=== PATIENT | female | born 1975 | race Caucasian/White ===

== ENCOUNTER 2016-08-30 16:24 | Emergency (ER) | payer OTHER ==
[2016-08-30 17:35] VITALS: BP 142/92
--- NOTE | 2016-08-30 18:03 | UC ---
Back Pain HPI - HPI Summary HPI Summary: The patient comes in today for: 1. Lower right back pain: Onset: One week. Palliative/provocative: Standing with no weight on the the right foot makes it better. Sitting to standing makes it worse. Quality: [place]: Right lower back. Severity: 3/10, with sitting to standing--8/10 Time: Constant, with episodic worsening. Associated symptoms: Spasms: present from time to time. Homes treatment: Aleve and Advil which does not help as much as she would like. Fevers: None. Unexpected weight loss: None. Previous problems: Occasionally in the past she has had it, but not to this degree. Her usual resting has been helping. Bowel/bladder incontinence: None. * - History of Current Complaint Chief Complaint: UCBackPain Stated Complaint: BACK PAIN Time Seen by Provider: 08/30/16 17:49 Hx Obtained From: Patient Hx Last Menstrual Period: 08/28/16 ?: No - Allergies/Home Medications Allergies/Adverse Reactions: Allergies Allergy/AdvReac Type Severity Reaction Status Date / Time No Known Allergies Allergy Verified 08/30/16 17:35 PMH/Surg Hx/FS Hx/Imm Hx Previously Healthy: No Endocrine History Of: Denies: Diabetes, Thyroid Disease, Hyperthyroidism, Hypothyroidism, Dyslipidemia Cardiovascular History Of: Denies: Cardiac Disorders, Hypertension, Pacemaker/ICD, Myocardial Infarction , Congestive Heart Failure, Atrial Fibrillation, Deep Vein Thrombosis, Bleeding Disorders Respiratory History Of: Denies: COPD, Asthma, Bronchitis, Pneumonia, Pulmonary Embolism GI/ History Of: Denies: Gastroesophageal Reflux, Ulcer, Gastrointestinal Bleed, Gall Bladder Disease, Kidney Stones, Diverticulitis, Renal Disease, Urosepsis Neurological History Of: Reports: Migraine - WITH MENSTAL CYCLE Denies: TIA, CVA, Dementia, Seizures Psychological History Of: Denies: Anxiety, Depression, Bipolar Disorder, Schizophrenia, Post Traumatic Stress Disorder Cancer History Of: Denies: Lung Cancer, Colorectal Cancer, Breast Cancer, Prostate Cancer, Cervical Cancer Other History Of: Negative For: HIV, Hepatitis B, Hepatitis C, Anticoagulant Therapy - Surgical History Surgical History: Yes Surgery Procedure, Year, and Place: 2005 & 2006 BENIGN BREAST BIOPSIES [place]. 1995 [place], ENDOMETRIAL TISSUE [place]. YOUNG CHILD T&A. YOUNG CHILD EMMANUEL SARA REMOVED LEFT LOWER LEG. kaela can - Family History Known Family History: Positive: Cardiac Disease, Hypertension - Social History Occupation: Unemployed Alcohol Use: Weekly Alcohol Amount: 2 glasses of wine per week Substance Use Type: None Smoking Status (MU): Never Smoked Tobacco Have You Smoked in the Last Year: No - Immunization History Most Recent Influenza Vaccination: FALL 2012 Most Recent Tetanus Shot: 02/2009 Most Recent Pneumonia Vaccination: NEVER Review of Systems Constitutional: Negative Skin: Negative Eyes: Negative ENT: Negative Respiratory: Negative Cardiovascular: Negative Gastrointestinal: Negative Genitourinary: Negative Musculoskeletal: Arthralgia Neurological: Weakness All Other Systems Reviewed And Are Negative: Yes Physical Exam Triage Information Reviewed: Yes Appearance: Well-Appearing, Well-Nourished, Pain Distress - She has guarding and psychomotor slowing. She is able to get on Vital Signs: Initial Vital Signs Temp 98.3 F 08/30/16 17:32 Pulse 57 08/30/16 17:32 Resp 20 08/30/16 17:32 BP 142/92 08/30/16 17:32 Pulse Ox 100 08/30/16 17:32 Vital Signs Reviewed: Yes Eyes: Positive: Conjunctiva Clear. Negative: Discharge ENT: Positive: Hearing grossly normal. Negative: Pharyngeal erythema, Nasal congestion, Nasal drainage, TM bulging, TM dull, TM red, Tonsillar swelling, Tonsillar exudate Dental: Negative: Gross Decay/Caries @, Dental Fracture @ Neck: Positive: Supple, Nontender, No Lymphadenopathy. Negative: Nuchal Rigidity Respiratory: Positive: Lungs clear, No respiratory distress, No accessory muscle use. Negative: Crackles, Wheezing Cardiovascular: Positive: RRR, No Murmur Abdomen Description: Positive: Nontender, No Organomegaly, Soft. Negative: Distended, Guarding Musculoskeletal: Positive: No Edema, Other: - Back: There is tenderness to palpation of the right paraspinous musculature. There is no Right CVA tenderness. There is increased pain with extension of the legs. There are 2+/ 2 x 2 patellar DTR. She has guarding and psychomotor slowing with getting examination table. Neurological: Positive: Alert, Muscle Tone Normal Psychological: Positive: Age Appropriate Behavior Skin: Negative: rashes, breakdown Back Pain Course/Dx - Course Course Of Treatment: Patient was given a ketorolac injection (60 mg) and told of her treatment options. She is agreeable to go with NSAIDS and muscle relaxant. She has a follow-up appointment with her primary care provider later this week or early next week. - Differential Dx/Diagnosis Provider Diagnoses: Lower back strain, right. Discharge - Discharge Plan Condition: Stable Disposition: HOME Patient Education Materials: Low Back Strain (ED) Referrals: Charles Rolon MD [Primary Care Provider] - 1 Week
[2016-08-30] MEDS ORDERED: Ketorolac INJ* 60 MG/2 ML VIAL IM ONE (18:04)
== END 2016-08-30 18:54 | disposition home or self-care (01) ==
LOC: UCEAST 16:24
DX: S39.012A Strain of muscle, fascia and tendon of lower back, initial encounter (principal); X58.XXXA Exposure to other specified factors, initial encounter; Y93.9 Activity, unspecified; Y92.9 Unspecified place or not applicable
CPT/HCPCS: 96372; 99211; G0463; J1885

== ENCOUNTER 2018-05-16 05:52 | Observation (INO) | payer OTHER ==
[~2018-05-16 05:52] MED LIST: Buffered Lidocaine 0.9% SYRIN* 5 ML/SYR SYRINGE INTRADERM ONE
[2018-05-16] MEDS ORDERED: ceFAZolin 2 GM in NS PREMIX(*) 2 GM/100 ML BAG IVPB ONE (06:07)
--- OUTSIDE RECORDS SUMMARY | 2018-05-16 06:08 | XMS REPORT ---
:1975 External Reference #:[id number] Author Organization [facility] Address [address] [place] [address] Phone [phone] Care Team Providers Name Role Phone Charles Rolon MD Care Team Information Convention Services Manager Unavailable Charles Rolon MD Primary Care Physician Unavailable Payers Type Date Identification Numbers Payment Provider Subscriber Health Maintenance Policy Number: Penn Laird [employer] Orlando Brandt Organization (O) [id number] PayID: [id number] [id number] [place] [address] Problems Date Description Provider Status Onset: 07/15/2011 Neck pain MILLY Scott Active Onset: 07/15/2011 Nausea Cari Schrader M.D. Active Onset: 07/15/2011 Migraine without aura, not refractory Cari Schrader M.D. Active Onset: 02/10/2013 Acute pharyngitis Charles Rolon M.D. Active Onset: 02/26/2012 Vitamin D deficiency Cari Schrader M.D. Active Onset: 02/26/2012 Counseling Cari Schrader M.D. Active Onset: 02/26/2012 Adult health examination Cari Schrader M.D. 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 Cigarette Use Nonsmoker Recreational Drug Use Denies Drug Use Smoking Patient has never smoked Daily Caffeine Consumes on average 2 cups of coffee per day Exercise Type/Frequency Current Exercises regularly Allergies, Adverse Reactions, Alerts Date Description Reaction Status Severity Comments 04/17/2011 NKDA active Medications Medication Date Status Form Strength Qnty SIG Indications Ordering Provider Cephalexin 04/24 Active Tablets 250mg 28tabs 1 by mouth L03.115 Reinier Arellano four times beth Walker MD Diflucan 04/24 Active Tablets 150mg 2tabs 1 by mouth L03.115 Reinier Arellano times 1 nicol Walker, december repeat in 5-7d Lorazepam 02/05 Active Tablets 1mg 30tabs 1 by mouth Charles Alexandra once a day vicky Rolon M.D. directed Baclofen 10/26 Active Tablets 10mg 10tabs one by S3Brendan.Inna Edwards mouth 2-3 Juan, times REFRIGERATION SUPERVISOR daily as needed Verapamil HCL Active Caps ER 180mg 1 po qhs Unknown ER /0000 24HR Gabapentin Active Capsules 100mg 1 by mouth Unknown /0000 tWO times a day Physical 10/26 Hx please Rajan.Inna Edwards Therapy diagnose Juan, - and treat REFRIGERATION SUPERVISOR 04/17 for right lower back and hip pain with radiation down right leg Prednisone 10/26 Hx Tablets 20mg 10tabs take 2 by Jaqueline9.Inna Edwards mouth as Juan, - one dose REFRIGERATION SUPERVISOR 04/17 daily until gone Guaifenesin-Co 09/18 Hx Syrup 100-10mg/ 120ml 5-10 ml by Cassie eid 5ML mouth [facility], - prn as Afnp-C 09/28 needed cough, mr x 1 , in 3-4 hrs Baclofen 07/17 Hx Tablets 20mg 45tabs 1 by mouth Charles Aleaxndra twice a Ольга, - day as MAdelitaDAdelita 09/14 needed for spasm Physical 07/17 Hx treatment M54.5 Charles Alexandra Therapy and Ольга, - evaluation M.D. 09/14 low back /2018 pain Naproxen 07/17 Hx Tablets 500mg 60tabs take 1 Charles Alexandra tablet Ольга, - twice M.D. 09/14 daily needed with food Fluconazole 05/26 Hx Tablets 150mg 1tabs 1 by mouth N76.0 Cassie x 1 Piperviridiana, - Afnp-C 07/17 Lorazepam 03/01 Hx Tablets 1mg 8tabs 1 by mouth Charles A once a day Ольга, - as M.D. 03/22 directed Physical 09/20 Hx treatment M54.5 Charles A. Therapy and Ольга, - evaluation M.D. 10/11 low back pain Lorazepam 04/29 Hx Tablets 1mg 8tabs 1 po once Charles A. a day prn Ольга, - M.D. 02/22 Metoprolol 02/18 Hx Tablets 25mg 30tabs 1 by mouth 401.1 Phan Rdz Succinate ER 24HR every day M.D. - 02/22 Metoprolol 12/05 Hx Tablets 100mg 30tabs 1/2 by 401.1 Phan Rdz Succinate ER 24HR mouth M.D. - every day 02/18 Butalbital/Matias 12/05 Hx Tablets 50-325-40 30tabs 1 by mouth 784.0 Phan Rdz taminophen/Caf /2014 mg every 4 M.D. feine - hours as 02/22 needed Metoprolol 11/28 Hx Tablets 50mg 30tabs 1 po qd 401.1 Phan Rdz Succinate ER 24HR M.D. - 12/05 Azithromycin 11/10 Hx Tablets 250mg 6tabs take 2 Rubens F. tablets by Cj, - mouth on M.D. 11/18 day 1 1 tablet on days 2 through 5 Benzonatate 11/10 Hx Capsules 100mg 20caps 1-2 po tid Rubens F. prn Cj, - M.D. 11/17 Lorazepam 09/08 Hx Tablets 0.5mg 12tabs 1 po bid Charles prn Ольга, - anxiety M.D. 09/18 Ovide 08/01 Hx Lotion 0.5% 4oz apply to dry hair Brown, REFRIGERATION SUPERVISOR - until hair 08/08 is wet and /2013 let dry naturally over 8 - 12 hrs. Wash out. Repeat in a week Penicillin VK 02/10 Hx Tablets 500mg 14tabs 1 po bid 462 Charles AAdelita Pricila Rolon M.D. 02/17 Lorazepam 10/30 Hx Tablets 1mg 15tabs 1 po tid prn Ryan REFRIGERATION SUPERVISOR - 06/04 Aleve 02/25 Hx 1 or 2 . tablets as Macrina, - needed for M.D. 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 Pricila Rolon M.D. 12/09 Amoxicillin/Cl 09/26 Hx Tablets 500-125mg 20tabs 1 po bid 462 Carlitos fermin /2010 Emiliano Berry Potassium - 11/29 Note 08/17 Hx Kasandra was V04.81 given Jamie, - mmr#2 GRAPPLE SKIDDER OPERATOR 09/16 Amoxicillin 08/11 Hx Capsules 500mg 20caps 1 po bid x 034.0 10d Jamie, - GRAPPLE SKIDDER OPERATOR 09/16 Zonegran 01/10 Hx Capsules 100mg 175mg total qd [facility]-DO[facility] OF OSTEOPATHY 01/10 Hx Tablets 10mg 12tabs take one . Dispers prn, Macrina, - repeat in M.D. 06/04 2 /2012 prn Vitamin D3 01/10 Hx Capsules 2000Unit 1 po qd in . the winter Pricila Schrader M.D. 09/20 Proventil HFA 06/18 Hx Aerosol 108mcg/Ac 1units 2 puffs 786.09 Charles A. /2008 t q6h prn Ольга, - analianess M.D. 05/30 of Topamax 04/20 Hx Tablets 50mg 60tabs 1/2 In Am, 1 po Q hs [facility] 01/10 Of Immitrex 04/20 Hx 100mg 1 po at onset of Medicine - rapp, mr q Associates 01/10 2hr x1 Of Mirena 04/20 Hx IUD 20mcg/24H R [facility] 01/10 Of Gabapentin Hx Capsules 300mg 120caps 1 po qd Unknown / - 05/26 Omeprazole Hx Capsules 40mg 1 po q am Unknown /0000 DR - 10/30 Pepcid Hx Tablets 40mg take 1 po Unknown /0000 q pm - 06/29 Pepcid Hx Tablets 40mg combine Unknown / w/prilosec - 10/30 Nexium Hx Capsules 40mg 1 po qd Unknown /0000 DR - 02/10 Dexilant Hx Capsules 60mg samples 1 po qd Unknown /0000 DR - 02/22 Fish Oil Hx Capsules 1000mg 1 po qd Unknown / - 02/22 Multivitamins / Hx Capsules 1 po qd Unknown / - 09/20 Ulesfia Hx Lotion 5% 24oz Apply to Halie dry hair Brown, REFRIGERATION SUPERVISOR - and leave 10/11 on for minutes than wash thoroughly Repeat in a week Lo Loestrin Fe 00 Hx Tablets 1mg-10 1 po qd Unknown /0000 mcg / 10 - mcg 12/05 Norethindrone Hx Tablets 0.35mg 3paks 1 po qd Unknown / - 02/22 Pantoprazole Hx Tablets 40mg 1 po bid Unknown Sodium / DR - 09/01 Calcium/Magnes 00/00 Hx Tablets 1 po qd Unknown ium /0000 - 09/20 Baclofen Hx Tablets 20mg 45tabs 1 by mouth Charles A. /0000 twice a Darlow, - day as M.DAdelita 10/11 needed for spasm Naproxen Hx Tablets 500mg prn Unknown /0000 - 05/26 Medications Administered in Office Medication Date Status Form Strength Qnty SIG Indications Ordering Provider TB Intradermal Administered Injection Breana Pena M.D. TB Intradermal Administered Injection Breana Pena M.D. TB Intradermal Administered Injection Cari Schrader M.D. Immunizations CPT Code Status Date Vaccine Lot # [id number] Given 02/26/2012 Tdap Tetanus, W Pertussis [id number] Given 06/29/2011 DO Not Use Split Influenza Virus Vaccine [id number] Given 08/17/2010 MMR Virus Immunization [id number] Given 08/09/2009 H1N1 Virus Vaccine [id number] 47596 Given 08/09/2009 H1N1 Immunization Intramuscular/Intranasal W Counseling Vital Signs Date Vital Result Comment 04/24/2018 BP Systolic 126 mmHg BP Diastolic 80 mmHg Heart Rate 56 /min Body Temperature 98.6 F Respiratory Rate 16 /min Height 68.5 inches 5'8.50" Weight 174.00 lb BMI (Body Mass Index) 26.1 kg/m2 10/26/2017 BP Systolic 120 mmHg BP Diastolic 82 mmHg Heart Rate 88 /min Body Temperature 98.1 F Height 68.5 inches 5'8.50" Weight 164.00 lb BMI (Body Mass Index) 24.6 kg/m2 09/17/2017 BP Systolic 134 mmHg BP Diastolic 82 mmHg Heart Rate 106 /min Body Temperature 98.8 F Height 68.5 inches 5'8.50" 09/14/2017 BP Systolic 110 mmHg BP Diastolic 70 mmHg Heart Rate 76 /min Body Temperature 98.9 F Respiratory Rate 16 /min Height 68.5 inches 5'8.50" Weight 164.50 lb BMI (Body Mass Index) 24.6 kg/m2 07/17/2017 BP Systolic 140 mmHg BP Diastolic 80 mmHg Heart Rate 76 /min Body Temperature 98.6 F Respiratory Rate 16 /min Height 68.5 inches 5'8.50" Weight 164.00 lb BMI (Body Mass Index) 24.6 kg/m2 05/26/2017 BP Systolic 100 mmHg BP Diastolic 70 mmHg Heart Rate 80 /min Body Temperature 98.1 F Respiratory Rate 18 /min Height 68.5 inches 5'8.50" Weight 165.00 lb BMI (Body Mass Index) 24.7 kg/m2 09/20/2016 BP Systolic 120 mmHg BP Diastolic 68 mmHg Heart Rate 76 /min Body Temperature 97.9 F Respiratory Rate 16 /min Height 68.5 inches 5'8.50" Weight 168.00 lb BMI (Body Mass Index) 25.2 kg/m2 09/01/2016 BP Systolic 108 mmHg BP Diastolic 76 mmHg Heart Rate 68 /min Body Temperature 98.6 F Height 68.5 inches 5'8.50" Weight 168.00 lb BMI (Body Mass Index) 25.2 kg/m2 02/22/2015 BP Systolic 120 mmHg BP Diastolic 78 mmHg Heart Rate 72 /min Body Temperature 98.9 F Respiratory Rate 16 /min Height 68.25 inches 5'8.25" Weight 165.00 lb BMI (Body Mass Index) 24.9 kg/m2 02/18/2014 BP Systolic 112 mmHg BP Diastolic 68 mmHg Heart Rate 62 /min Body Temperature 98.8 F Respiratory Rate 16 /min Height 68.25 inches 5'8.25" Weight 165.00 lb BMI (Body Mass Index) 24.9 kg/m2 01/09/2014 BP Systolic 120 mmHg BP Diastolic 70 mmHg Heart Rate 56 /min Body Temperature 97.4 F Respiratory Rate 16 /min Height 68.25 inches 5'8.25" Weight 165.00 lb BMI (Body Mass Index) 24.9 kg/m2 12/05/2013 BP Systolic 130 mmHg BP Diastolic 90 mmHg Heart Rate 64 /min Body Temperature 98.3 F Height 68.25 inches 5'8.25" Weight 165.00 lb BMI (Body Mass Index) 24.9 kg/m2 11/28/2013 BP Systolic 168 mmHg BP Diastolic 90 mmHg Heart Rate 65 /min Body Temperature 98.7 F Respiratory Rate 14 /min Height 68.25 inches 5'8.25" Weight 164.00 lb BMI (Body Mass Index) 24.8 kg/m2 11/10/2013 BP Systolic 144 mmHg BP Diastolic 98 mmHg Heart Rate 72 /min Body Temperature 98.4 F Height 68.25 inches 5'8.25" Weight 165.50 lb BMI (Body Mass Index) 25.0 kg/m2 10/11/2013 BP Systolic 120 mmHg BP Diastolic 82 mmHg Heart Rate 78 /min Body Temperature 98.5 F Respiratory Rate 15 /min Height 68.25 inches 5'8.25" Weight 164.00 lb BMI (Body Mass Index) 24.8 kg/m2 06/04/2013 BP Systolic 130 mmHg BP Diastolic 84 mmHg Heart Rate 64 /min Body Temperature 97.4 F Respiratory Rate 16 /min Height 68.25 inches 5'8.25" Weight 163.00 lb BMI (Body Mass Index) 24.6 kg/m2 02/10/2013 BP Systolic 100 mmHg BP Diastolic 66 mmHg Heart Rate 56 /min Body Temperature 98.5 F Respiratory Rate 16 /min O2 % BldC Oximetry 98 % Height 68.25 inches 5'8.25" Weight 163.00 lb BMI (Body Mass Index) 24.6 kg/m2 12/16/2012 BP Systolic 110 mmHg BP Diastolic 70 mmHg Heart Rate 68 /min Body Temperature 98.8 F Respiratory Rate 16 /min Height 68.25 inches 5'8.25" Weight 164.00 lb BMI (Body Mass Index) 24.8 kg/m2 10/30/2012 BP Systolic 118 mmHg BP Diastolic 74 mmHg Heart Rate 72 /min Respiratory Rate 18 /min Height 68.25 inches 5'8.25" Weight 164.25 lb BMI (Body Mass Index) 24.8 kg/m2 05/30/2012 BP Systolic 120 mmHg BP Diastolic 86 mmHg Heart Rate 72 /min Body Temperature 98.5 F Height 68.25 inches 5'8.25" Weight 163.50 lb BMI (Body Mass Index) 24.7 kg/m2 02/29/2012 BP Systolic 140 mmHg BP Diastolic 90 mmHg Heart Rate 72 /min Body Temperature 98.1 F Height 68.25 inches 5'8.25" Weight 163.00 lb BMI (Body Mass Index) 24.6 kg/m2 02/26/2012 BP Systolic 140 mmHg BP Diastolic 90 mmHg Heart Rate 72 /min Body Temperature 98.1 F Height 68.25 inches 5'8.25" Weight 163.00 lb BMI (Body Mass Index) 24.6 kg/m2 Right Visual Acuity Distance 20/20 uncorrected Left Visual Acuity Distance 20/20 uncorrected 06/29/2011 BP Systolic 122 mmHg BP Diastolic 82 mmHg Heart Rate 72 /min Body Temperature 99.3 F Height 68.25 inches 5'8.25" Weight 171.00 lb BMI (Body Mass Index) 25.8 kg/m2 04/17/2011 BP Systolic 130 mmHg BP Diastolic 80 mmHg Heart Rate 64 /min Body Temperature 97.8 F Height 68.25 inches 5'8.25" Weight 170.00 lb BMI (Body Mass Index) 25.7 kg/m2 11/29/2010 BP Systolic 124 mmHg BP Diastolic 70 mmHg Heart Rate 64 /min Body Temperature 98.8 F Respiratory Rate 14 /min Height 68.25 inches 5'8.25" Weight 170.00 lb BMI (Body Mass Index) 25.7 kg/m2 09/26/2010 BP Systolic 122 mmHg BP Diastolic 70 mmHg Heart Rate 78 /min Body Temperature 98.1 F Height 68.25 inches 5'8.25" Weight 171.00 lb BMI (Body Mass Index) 25.8 kg/m2 09/16/2010 BP Systolic 110 mmHg BP Diastolic 70 mmHg Heart Rate 72 /min Body Temperature 99.0 F Respiratory Rate 15 /min Height 68.25 inches 5'8.25" Weight 170.00 lb BMI (Body Mass Index) 25.7 kg/m2 08/17/2010 BP Systolic 122 mmHg BP Diastolic 62 mmHg Heart Rate 72 /min Body Temperature 97.1 F Respiratory Rate 15 /min Height 68.25 inches 5'8.25" Weight 170.00 lb BMI (Body Mass Index) 25.7 kg/m2 08/11/2010 BP Systolic 122 mmHg BP Diastolic 60 mmHg Heart Rate 94 /min Body Temperature 102.6 F Height 68.25 inches 5'8.25" Weight 170.00 lb BMI (Body Mass Index) 25.7 kg/m2 01/10/2010 BP Systolic 108 mmHg BP Diastolic 70 mmHg Heart Rate 76 /min Weight 685.00 lb 06/18/2009 BP Systolic 110 mmHg BP Diastolic 70 mmHg Heart Rate 72 /min Body Temperature 98.6 F Respiratory Rate 16 /min O2 % BldC Oximetry 99 % Height 68.25 inches 5'8.25" Weight 174.00 lb BMI (Body Mass Index) 26.3 kg/m2 04/20/2009 BP Systolic 122 mmHg BP Diastolic 80 mmHg Heart Rate 60 /min Body Temperature 98.5 F Respiratory Rate 16 /min Height 68.25 inches 5'8.25" Weight 170.00 lb BMI (Body Mass Index) 25.7 kg/m2 Results Test Date Test Result H/L Range Note Influenza A&B-fma 09/14/2017 Influenza A POSITIVE Influenza B negative Laboratory test 09/14/2017 Quickstrep negative Negative finding Laboratory test 08/28/2017 Clotest SEE RESULT BELOW 1, 2 finding Laboratory test 08/28/2017 Surgical Pathology SEE RESULT BELOW 3, 4 finding Laboratory test 05/26/2017 Wet Prep see comment 5 finding (Fma,CMC,CX) Complete Blood Count 09/22/2016 WBC 5.1 x10^3/UL 3.6-9.6 RBC 4.44 x10^6/UL 3.90-5.70 HGB 13.1 g/dL 12.1-17.2 HCT 37 % 36-50 MCV 84.0 fL 82.2-97.4 MCH 29.5 pg 27.6-33.3 MCHC 35.0 g/dL 33.0-35.5 RDW 13.1 % 11.6-13.7 PLT 289 x10^3/UL 150-400 MPV 7.3 fL Low 7.4-10.4 Gran # 3.1 x10^3/UL 1.5-7.2 Lymph# 1.8 x10^3/UL 0.7-4.9 [place]# 0.2 x10^3/UL 0.1-0.9 Gran % 59.7 % 42.2-75.2 Lymph % 35.1 % 20.5-51.1 [place]% 5.2 % 1.7-9.3 Comprehensive Metabolic Prof 09/22/2016 Sodium 137 mEq/L 134-149 Potassium 4.3 mEq/L 3.6-5.5 Chloride 106 mEq/L 94-112 Carbon Dioxide 23 mEq/L 21-32 Glucose 98 mg/dL 70-105 BUN 15 mg/dL 6-26 Creatinine 0.8 mg/dL 0.6-1.4 BUN/Creat Ratio 18.8 CALC 8.0-36.0 Calcium 9.2 mg/dL 8.6-10.2 Total Protein 7.2 g/dL 6.4-8.3 Albumin 4.6 g/dL 3.8-5.5 Globulin 2.6 g/dL 2.0-4.8 A/G Ratio 1.8 CALC 0.6-2.3 Alk. Phosphatase 40 U/L 30-110 Alt (SGPT) 10 U/L 7-35 Ast (Sgot) 14 U/L 5-34 Total Bilirubin 0.7 mg/dL 0.2-1.3 GFR Non- >60 ml/min/1.73m^ >=60 GFR >60 ml/min/1.73m^ >=60 Lipid Profile 09/22/2016 Cholesterol 176 mg/dL 120-200 Triglycerides 33 mg/dL 30-200 HDL Cholesterol 55 mg/dL 30-85 LDL (Calculated) 114 CALC 0-129 VLDL Cholesterol 7 mg/dL 0-50 HDL Risk Factor 3.2 CALC 0.0-4.4 Laboratory test finding 09/22/2016 TSH 1.54 mIU/L 0.50-6.00 Free T4 1.20 ng/dL 0.75-1.54 Serum Iron 101 g/dL 60-150 Comp Metabolic Panel 02/12/2015 Sodium 136 mmol/L 133-145 Potassium 4.1 mmol/L 3.5-5.0 Chloride 106 mmol/L 101-111 Co2 Carbon Dioxide 25 mmol/L 22-32 Anion Gap 5 mmol/L 2-11 Glucose 87 mg/dL 70-100 Blood Urea Nitrogen 14 mg/dL 6-24 Creatinine 0.84 mg/dL 0.51-0.95 BUN/Creatinine Ratio 16.7 8-20 Calcium 9.0 mg/dL 8.6-10.3 Total Protein 6.3 g/dL Low 6.4-8.9 Albumin 4.2 g/dL 3.2-5.2 Globulin 2.1 g/dL 2-4 Albumin/Globulin Ratio 2.0 1-3 Total Bilirubin 0.70 mg/dL 0.2-1.0 Alkaline Phosphatase 40 U/L 34-104 Alt 9 U/L 7-52 Ast 12 U/L Low 13-39 Egfr Non- 76.3 >60 Egfr 98.1 >60 6 Lipid Profile (Trig/Chol/HDL) 02/12/2015 Triglycerides 52 mg/dL 7 Cholesterol 159 mg/dL 8 HDL Cholesterol 56.1 mg/dL 9 LDL Cholesterol 93 mg/dL 10 CBC Auto Diff 02/12/2015 White Blood Count 5.4 10^3/uL 4.8-10.8 Red Blood Count 4.59 10^6/uL 4.0-5.4 Hemoglobin 13.4 g/dL 12.0-16.0 Hematocrit 39 % 35-47 Mean Corpuscular Volume 86 fL 80-97 Mean Corpuscular Hemoglobin 29 pg 27-31 Mean Corpuscular HGB Conc 34 g/dL 31-36 Red Cell Distribution Width 13 % 10.5-15 Platelet Count 251 10^3/uL 150-450 Mean Platelet Volume 7 um3 Low 7.4-10.4 Abs Neutrophils 2.9 10^3/uL 1.5-7.7 Abs Lymphocytes 2.0 10^3/uL 1.0-4.8 Abs Monocytes 0.4 10^3/uL 0-0.8 Abs Eosinophils 0.1 10^3/uL 0-0.6 Abs Basophils 0 10^3/uL 0-0.2 Abs Nucleated RBC 0.01 10^3/uL Granulocyte % 54.3 % 38-83 Lymphocyte % 36.6 % 25-47 Monocyte % 7.4 % 1-9 Eosinophil % 1.0 % 0-6 Basophil % 0.7 % 0-2 Nucleated Red Blood Cells % 0.1 Quantiferon Gold TB 02/12/2015 M tuberculosis by Quantiferon Negative Negative Tuberculosis Antigen Value 0.02 IU/mL 11 CBC Auto Diff 02/05/2014 White Blood Count 7.7 10^3/uL 4.8-10.8 Red Blood Count 4.34 10^6/uL 4.0-5.4 Hemoglobin 13.0 g/dL 12.0-16.0 Hematocrit 36 % 35-47 Mean Corpuscular Volume 84 fL 80-97 Mean Corpuscular Hemoglobin 30 pg 27-31 Mean Corpuscular HGB Conc 36 g/dL 31-36 Red Cell Distribution Width 14 % 10.5-15 Platelet Count 271 10^3/uL 150-450 Mean Platelet Volume 8 um3 7.4-10.4 Abs Neutrophils 4.6 10^3/uL 1.5-7.7 Abs Lymphocytes 2.5 10^3/uL 1.0-4.8 Abs Monocytes 0.5 10^3/uL 0-0.8 Abs Eosinophils 0 10^3/uL 0-0.6 Abs Basophils 0 10^3/uL 0-0.2 Abs Nucleated RBC 0 10^3/uL Granulocyte % 59.5 % 38-83 Lymphocyte % 33.0 % 25-47 Monocyte % 6.7 % 1-9 Eosinophil % 0.4 % 0-6 Basophil % 0.4 % 0-2 Nucleated Red Blood Cells % 0 Type & Screen 02/05/2014 Patient Blood Type A Positive Antibody Screen NEGATIVE Laboratory test finding 10/11/2013 Quickstrep NEG Negative Ua - Non Micro (a) 06/04/2013 Appearance CLEAR Color YELLOW Glucose NEG Bilirubin NEG Ketones NEG SP Grav <=1.005 Blood NEG PH 6.5 Protein NEG Urobil 0.2 Nitrite NEG Leukocytes (a/CMC/Centrex) NEG Comprehensive Metabolic Prof 05/07/2013 Albumin 4.3 g/dL 3.8-5.5 Alk. Phos. 51 U/L 30-110 Alt (SGPT) 11 U/L 7-35 Ast (Sgot) 15 U/L 5-34 BUN 22 mg/dL 6-26 Calcium 9.3 mg/dL 8.6-10.2 Chloride 103 mEq/L 94-112 Creatinine 0.9 mg/dL 0.6-1.4 Carbon Dioxide 24 mEq/L 21-32 Glucose 92 mg/dL 70-105 Sodium 137 mEq/L 134-149 Total Bilirubin 0.6 mg/dL 0.2-1.3 Total Protein 6.5 g/dL 6.3-8.1 Potassium 4.0 mEq/L 3.6-5.5 Globulin 2.3 g/dL 2.0-4.8 A/G Ratio 1.9 Calc 0.6-2.3 BUN/Creat Ratio 25.0 Calc 8.0-36.0 Lipid Profile 05/07/2013 Cholesterol 164 mg/dL 120-200 HDL 54 mg/dL 30-85 Triglycerides 46 mg/dL 30-200 HDL Risk Factor 3.1 CALC 0.0-4.4 LDL (Calculated) 102 CALC 0-129 VLDL (Calculated) 9 mg/dL 0-50 CBC Electronic (a) 05/07/2013 WBC 6.4 3.6-9.6 RBC 4.55 3.90-5.70 Hemoglobin (Fma/CMC/CTX) 13.0 g/dL 12.1 - 17.2 Hematocrit (Fma/CMC/CTX) 38.7 % 36.1 - 50.3 Platelets 251 10^3/ul 150-400 Lymph% 28.3 20.5-51.1 Mixed% 3.5 Neutrophils % 68.2 Mean Corpuscular Vol 85 82.2-97.4 Mean Corpuscular Hemoglobin 28.6 27.6-33.3 Mean Corpuscular Hemo Concen 33.6 32.0-36.0 RDW 11.8 11.6-13.7 Mean Platelet Volume 6.6 6.5-11.0 Ua - Non Micro ([facility]) 10/30/2012 Appearance clear Color yellow Glucose - Bilirubin - Ketones - SP Grav 1.015 Blood - PH 6.5 Protein - Urobil 0.2 Nitrite - Leukocytes ([facility] [place]/Centrex) - Laboratory test 07/02/2012 Surgical Pathology RUN DATE: finding <SEE NOTE> Laboratory test 05/30/2012 TSH 1.40 mIU/L 0.50-6.00 finding CBC Electronic ([facility]) 05/30/2012 WBC 7.5 3.6-9.6 RBC 4.88 3.90-5.70 Hemoglobin (Fma/CMC/CTX) 13.7 g/dL 12.1 - 17.2 Hematocrit (a/CMC/CTX) 41.6 % 36.1 - 50.3 Platelets 282 10^3/ul 150-400 Lymph% 30.9 20.5-51.1 Mixed% 3.6 Neutrophils % 65.5 Mean Corpuscular Vol 85 82.2-97.4 Mean Corpuscular Hemoglobin 28.2 27.6-33.3 Mean Corpuscular Hemo Concen 33.1 32.0-36.0 RDW 11.3 Low 11.6-13.7 Mean Platelet Volume 6.5 6.5-11.0 Laboratory test finding 05/30/2012 Monospot (a/Centrex) NEG Comprehensive Metabolic Prof 05/30/2012 Albumin 4.8 g/dL 3.8-5.5 Alk. Phos. 51 U/L 30-110 Alt (SGPT) 14 U/L 7-35 Ast (Sgot) 18 U/L 5-34 BUN 14 mg/dL 6-26 Calcium 9.5 mg/dL 8.6-10.2 Chloride 101 mEq/L 94-112 Creatinine 0.9 mg/dL 0.6-1.4 Carbon Dioxide 21 mEq/L 21-32 Glucose 100 mg/dL 70-105 Sodium 139 mEq/L 134-149 Total Bilirubin 0.3 mg/dL 0.2-1.3 Total Protein 7.2 g/dL 6.3-8.1 Potassium 4.3 mEq/L 3.6-5.5 Globulin 2.3 g/dL 2.0-4.8 A/G Ratio 2.1 Calc 0.6-2.2 BUN/Creat Ratio 15.4 Calc 8.0-36.0 Lipid Profile 02/26/2012 Cholesterol 185 mg/dL 120-200 HDL 51 mg/dL 30-85 Triglycerides 57 mg/dL 30-200 HDL Risk Factor 3.6 CALC 0.0-4.0 LDL (Calculated) 123 CALC 0-129 VLDL (Calculated) 11 mg/dL 0-50 CBC Electronic (a) 02/26/2012 WBC 5.9 3.6-9.6 RBC 5.08 3.90-5.70 Hemoglobin (Fma/CMC/CTX) 14.1 g/dL 12.1 - 17.2 Hematocrit (Fma/CMC/CTX) 43.0 % 36.1 - 50.3 Platelets 267 10^3/ul 150-400 Lymph% 28.1 20.5-51.1 Mixed% 3.4 Neutrophils % 68.5 Mean Corpuscular Vol 85 82.2-97.4 Mean Corpuscular Hemoglobin 27.7 27.6-33.3 Mean Corpuscular Hemo Concen 32.7 32.0-36.0 RDW 11.4 Low 11.6-13.7 Mean Platelet Volume 7.3 6.5-11.0 Basic Metabolic Profile 02/26/2012 BUN 13 mg/dL 6-26 Calcium 9.0 mg/dL 8.6-10.2 Chloride 98 mEq/L 94-112 Creatinine 0.9 mg/dL 0.6-1.4 Carbon Dioxide 25 mEq/L 21-32 Glucose 92 mg/dL 70-105 Sodium 137 mEq/L 134-149 Potassium 4.1 mEq/L 3.6-5.5 BUN/Creat Ratio 15.1 Calc 8.0-36.0 Laboratory test 02/26/2012 Varicella Zoster V 1.71 index High Immune > 1.09 13 finding AB,Igg Laboratory test 02/26/2012 Vitamin D, 25 Oh 34.2 ng/mL 30.0-100.0 14 finding Hep B Surface AB,QN 38.65 IndexValue High 0.00-0.99 15 Ua - Non Micro (Fma) 02/26/2012 Appearance clear Color yellow Glucose, Urine (Fma/CMC/CTX) neg Bilirubin neg Ketones neg SP Grav 1.020 Blood large (menses) PH 7.5 Protein neg Urobil 0.2 Nitrite neg Leukocytes (Fma/CMC/Centrex) neg MMR Imm 02/26/2012 Rubella Antibodies, IgG 54 IU/mL 16 Rubeola Ab, IgG, Eia 2.57 index High 0.00-0.90 17 Mumps Abs, IgG 2.84 index High 0.00-0.90 18 Comprehensive Metabolic Prof 04/17/2011 Albumin 4.8 g/dL 3.8-5.5 Alk. Phos. 59 U/L 30-110 Alt (SGPT) 14 U/L 7-35 Ast (Sgot) 13 U/L 5-34 BUN 13 mg/dL 6-26 Calcium 9.1 mg/dL 8.6-10.2 Chloride 96 mEq/L 94-112 Creatinine 0.9 mg/dL 0.6-1.4 Carbon Dioxide 22 mEq/L 21-32 Glucose 96 mg/dL 70-105 Sodium 143 mEq/L 134-149 Total Bilirubin 0.4 mg/dL 0.2-1.3 Total Protein 7.1 g/dL 6.3-8.1 Potassium 3.6 mEq/L 3.6-5.5 Globulin 2.3 g/dL 2.0-4.8 A/G Ratio 2.1 Calc 0.6-2.2 BUN/Creat Ratio 14.9 Calc 8.0-36.0 Ua - Micro (a) 04/17/2011 Appearance CLEAR Color YELLOW Glucose, Urine (Fma/CMC/CTX) NEG Bilirubin NEG Ketones NEG SP Grav 1.020 Blood TRACE-INTACT PH 6.0 Protein NEG Urobil 0.2 Nitrite NEG Leukocytes (Fma/CMC/Centrex) NEG Hyaline - /Lpf Granular - /Lpf WBC (Fma,Centrex) - RBC 0-2 Mucus (Fma/CBC/Centrex) - /Lpf Epith RARE /Lpf Bacteria - /Hpf Amorphous (Fma/CMC/Centrex) - /Lpf Crystals, Fluid (Fma/CMC/CTX) - Z#Comments - CBC Electronic (Fma) 04/17/2011 WBC 8.9 3.6-9.6 RBC 4.61 3.90-5.70 Hemoglobin (Fma/CMC/CTX) 12.9 g/dL 12.1 - 17.2 Hematocrit (Fma/CMC/CTX) 38.9 % 36.1 - 50.3 Platelets 284 10^3/ul 150-400 Lymph% 24.5 20.5-51.1 Mixed% 4.2 Neutrophils % 71.3 Mean Corpuscular Vol 84 82.2-97.4 Mean Corpuscular Hemoglobin 28.0 27.6-33.3 Mean Corpuscular Hemo Concen 33.2 32.0-36.0 RDW 11.5 Low 11.6-13.7 Mean Platelet Volume 7.3 6.5-11.0 Laboratory test finding 11/29/2010 Quickstrep NEG Negative Throat - Beta Strep Fma NEG@48HRS Influenza A&B 11/29/2010 Influenza A NEG Influenza B NEG Laboratory test finding 09/26/2010 Throat - Beta Strep Fma NEG@48HRS Quickstrep NEG Negative [facility] 09/16/2010 WBC 6.7 3.6-9.6 RBC 4.42 3.90-5.70 Hemoglobin (Fma/CMC/CTX) 12.4 g/dL 12.1 - 17.2 Hematocrit (Fma/CMC/CTX) 37.4 % 36.1 - 50.3 Mean Corpuscular Vol 84.6 82.2-97.4 Mean Corpuscular Hemoglobin 28.1 27.6-33.3 Mean Corpuscular Hemo Concen 33.2 32.0-36.0 Platelets 276 10^3/ul 150-400 RDW 13.4 11.6-13.7 Mean Platelet Volume 9.7 6.5-11.0 Neutrophil 35 Band 2 Lymphocytes 58 Monocyte 2 Eosinophils 1 Atypical Lymph 1 Comment rbc/plt normal Laboratory test finding 09/16/2010 Quickstrep negative Negative Laboratory test finding 09/16/2010 Throat - Beta Strep Fma NEGATIVE Negative Laboratory test finding 09/16/2010 Monospot (Fma/Centrex) NEGATIVE Negative Laboratory test finding 08/11/2010 Quickstrep POSITIVE Negative Influenza A&B 08/11/2010 Influenza A NEGATIVE Influenza B NEGATIVE CBC ([facility]) 01/10/2010 WBC 19.7 High 3.6-9.6 RBC 4.68 3.90-5.70 Hemoglobin (Fma/CMC/CTX) 13.8 g/dL 12.1 - 17.2 Hematocrit (Fma/CMC/CTX) 39.5 % 36.1 - 50.3 Mean Corpuscular Vol 84.4 82.2-97.4 Mean Corpuscular Hemaglobin 29.5 27.6-33.3 Mean Corpuscular Hemo Concen 34.9 33.0-36.0 Platelets 287 10^3/ul 150-400 Lymph% 20.0 Low 20.5-51.1 Mixed% 9.1 Neutrophils % 70.9 RDW 14.2 High 11.6-13.7 Mean Platelet Volume 11.2 High 7.4-10.4 PTH Intact W/Calcim (CX) 01/10/2010 Calcium 9.1 mg/dL 8.4-10.4 19 Intact PTH 33.0 pg/mL 10.0-73.0 19 Calcium 9.1 mg/dL 8.4-10.4 19 Laboratory test 01/10/2010 Vitamin D, 25 Oh 20.8 ng/mL Low 32.0-100.0 19 , 20 finding Celiac Disease Comp 01/10/2010 Deamidated Gliadin 1.1 U/mL 0.0-10.0 19 PNL Abs, IgA Deamidated Gliadin Abs, IgG 0.7 U/mL 0.0-10.0 19 t-Transglutaminase (tTG) IgA 1 U/mL 0-3 19, 21 t-Transglutaminase (tTG) IgG 1 U/mL 0-5 19, 22 Endomysial Antibody IgA Negative Negative 19 Immunoglobulin A, Qn, Serum 116 mg/dL 70-400 19 Cytology Non-Glove Turner 11/18/2009 Cytology Non Glove Turner <SEE 23 NOTE> Laboratory test 11/18/2009 Lyme Disease Negative Negative 24 finding Screen, CSF Multiple Sclerosis 11/18/2009 CSF Olig Bands 0 bands () Evaluation Serum Olig Bands 0 bands () Interpretation 0 bands <4 25 CSF Igg Index 0.48 index <=0.85 CSF Igg 1.63 mg/dL <=8.1 CSF Albumin 15.40 mg/dL <=27.0 CSF Igg/Albumin 0.11 ratio <=0.21 CSF Synthesis Rate 0.00 mg/24h <=12 26 Igg 1000 mg/dL 600-1500 Albumin 4580 mg/dL 9466-9164 Igg/Albumin 0.2 ratio <=0.4 27 Laboratory test finding 11/18/2009 Glucose CSF 53 mg/dL 50-75 28 Protein CSF 26 mg/dL 15-45 28 Cell Count CSF 11/18/2009 CSF Appearance CLEAR/COLORLESS 29 CSF Volume 2 ML 29 CSFWBC 0 CUMM 29 CSF RBC 9 CUMM 29 Total Diff Cells Counted (SEE NOTE) 29, 30 CSF Comments (SEE NOTE) 29, 31 CSF Tube # TUBE #1 29 Cell Count CSF 11/18/2009 CSF Appearance CLEAR/COLORLESS 32 CSF Volume 5 ML 32 CSFWBC 0 CUMM 32 CSF RBC 3 CUMM 32 Total Diff Cells Counted (SEE NOTE) 32, 33 CSF Comments (SEE NOTE) 32, 34 CSF Tube # TUBE #4 32 Herpes Simplex 11/18/2009 Herpes Simplex PCR This test was 35, 36 Culture de <SEE NOTE> Laboratory test 11/18/2009 Cytomegalovirus By This test was 35, 37 finding Rapid PCR de <SEE NOTE> Laboratory test 09/12/2009 Anti Thrombin III 87 % 80-130 38 finding Activity Lupus Anticoagulant 09/12/2009 Prothrombin Time 10.4 s 8.3-10.8 AB Inr 1.1 0.9-1.2 PT Mix 1:1 SEE BELOW s () 39 Aptt 28 s 21-33 Aptt Mix 1:1 SEE BELOW s () 40 Platelet Neutralization Proced SEE BELOW () 41 DRVVT Screen Ratio 1.0 ratio <1.2 DRVVT Mix Ratio SEE BELOW ratio <1.2 42 Thrombin Time (Bovine) SEE BELOW s 16-25 43 Reptilase Time SEE BELOW s 16-22 44 Interpretation SEE BELOW () 45 Factor 5 Leiden Mutation 09/12/2009 Factor 5 Leiden Mut Method . () 46 Factor 5 Leiden Mut Result Negative Negative 47 Factor 5 Leiden Mut Interp . () 48 Reviewed By Amado Phoenix MD () 49 Laboratory test finding 09/12/2009 Homocysteine 6 umol/L () 50 Cardiolipin Igg,Igm,Iga AB 09/12/2009 Cardiolipin Igg AB <4.0 GPL () 51 Cardiolipin Igm AB <4.0 MPL () 52 Cardiolipin Iga AB <4.0 APL () 53 Phosphatidylserine Igg, Iga,Igm 09/12/2009 Phosphatidyserine Igg <10 U/mL () 54 Phosphatidyserine Iga <20 U/mL () 55 Phosphatidyserine Igm <25 U/mL () 56 Laboratory test finding 09/12/2009 Protein C Activity 73 % 70-150 57 Protein S Activity 80 % 50-160 58 Factor II (Prothrombin) Genoty 09/12/2009 PT Mutation Method . () 59 Prothrombin 77959 Mutation Negative Negative 60 PT Mutation Interp . () 61 Reviewed By Amado Phoenix MD () 62 CBC With Electronic Diff Stat 09/12/2009 White Blood Count 6.6 CUMM 4.8- 10.8 Red Cell Count 4.70 CUMM 4.2-5.4 Hemoglobin 13.3 g/dL 12.0-16.0 Hematocrit 40 % 35-47 Mean Corpuscular Volume 85 um3 79-97 Mean Corpuscular Hemoglob 28 pg 27-31 Mean Corpuscular HGB Cone 33 g/dL 32-36 Redcell Distribution WDTH 14 % 10.5-15 Platelet Count 364 CUMM 150-450 Mean Platelet Volume 7.3 um3 Low 7.4-10.4 Gran % 58.5 % 38-83 Lymph % 33.3 % 25-47 Mononuclear % 7.0 % 1-9 Eosinophil % 0.6 % 0-6 Basophil % 0.6 % 0-2 Abs Lymphs 2.2 1.0-4.8 Abs Mononuclear 0.5 0-0.8 Absolute Neutrophil Count 3.9 1.5-7.7 Abs Eosinophils 0 0-0.6 Abs Basophils 0 0-0.2 Basic Metabolic Panel Stat 09/12/2009 Sodium 135 mmol/L 135-145 Potassium 3.4 mmol/L Low 3.5-5.0 Chloride 108 mmol/L 101-111 Co2 (Carbon Dioxide) 25.0 mmol/L 22-32 Anion Gap 2.0 mmol/L 2-11 63 Glucose 74 mg/dL 70-100 64 BUN 12 mg/dL 6-24 Creatinine 0.70 mg/dL 0.50-1.40 One Over Creatinine 1.40 BUN/Creatinine Ratio 17.1 8-20 Calcium 8.8 mg/dL 8.1-9.9 65 eGFR Non- 103.7 > 60 eGFR 125.5 > 60 66 HCG Qualitative Stat 09/12/2009 Serum Qual HCG NEGATIVE Negative 67 Laboratory test finding 09/12/2009 C Reactive Protein < 0.5 mg/dL Less Than 0.5 Erythrocyte Sed Rate 2 MM/HR 0-15 Laboratory test finding 07/20/2009 Vitamin B12 790 pg/mL 180-914 Vitamin D, 25 Hydroxy 07/20/2009 25-Hydroxy Vitamin D2 <4.0 ng/mL () 25-Hydroxy Vitamin D3 31 ng/mL () 25-Hydroxy Vitamin D Total 31 ng/mL () 68 Laboratory test finding 07/20/2009 AChR Binding 0.00 nmol/L <=0.02 69 Autoantibodies Comp Metabolic Panel 06/15/2009 Sodium 138 mmol/L 135-145 Potassium 4.1 mmol/L 3.5-5.0 Chloride 109 mmol/L 101-111 Co2 (Carbon Dioxide) 26.0 mmol/L 22-32 Anion Gap 3.0 mmol/L 2-11 70 Glucose 90 mg/dL 70-100 71 BUN 12 mg/dL 6-24 Creatinine 0.80 mg/dL 0.50-1.40 One Over Creatinine 1.20 BUN/Creatinine Ratio 15.0 8-20 Calcium 9.1 mg/dL 8.1-9.9 72 Total Protein 6.8 GM/DL 6.2-8.1 Albumin 4.2 GM/DL 3.6-5.4 Globulin 2.6 GM/DL 2-4 Albumin/Globulin Ratio 1.6 1-3 Bilirubin Total 0.8 mg/dL 0.4-1.5 73 Alkaline Phosphatase 58 U/L 30-110 Alt (SGPT) 20 U/L 14-54 Ast (Sgot) 15 U/L 12-42 eGFR Non- 88.9 > 60 eGFR 107.6 > 60 74 Lipid Profile (Trig/Chol/HDL) 06/15/2009 Triglyceride 74 mg/dL 40-200 Cholesterol 189 mg/dL Less Than 200 75 High Density Lipoprotein 35 mg/dL Low 40-60 76 Cholesterol/HDL Ratio 5.40 AVERAGE High 1-4.44 Low Density Lipoprotein 139 mg/dL High Less Than 100 77 Laboratory test finding 06/15/2009 Magnesium 2.4 mg/dL 1.7-2.6 CPK (Creatine Kinase) 70 U/L 0-170 Thyroxine Free 0.94 NG/ML 0.61-1.24 78 TSH 2.07 MIU/ML 0.34-5.60 C Reactive Protein < 0.5 mg/dL Less Than 0.5 CBC With Electronic Diff 06/15/2009 White Blood Count 7.1 CUMM 4.8-10.8 Red Cell Count 4.71 CUMM 4.2-5.4 Hemoglobin 13.7 g/dL 12.0-16.0 Hematocrit 40 % 35-47 Mean Corpuscular Volume 85 um3 79-97 Mean Corpuscular Hemoglob 29 pg 27-31 Mean Corpuscular HGB Cone 34 g/dL 32-36 Redcell Distribution WDTH 13 % 10.5-15 Platelet Count 268 CUMM 150-450 Mean Platelet Volume 7.7 um3 7.4-10.4 Gran % 60.0 % 38-83 Lymph % 32.1 % 25-47 Mononuclear % 6.1 % 1-9 Eosinophil % 1.3 % 0-6 Basophil % 0.5 % 0-2 Abs Lymphs 2.3 1.0-4.8 Abs Mononuclear 0.4 0-0.8 Absolute Neutrophil Count 4.2 1.5-7.7 Abs Eosinophils 0.1 0-0.6 Abs Basophils 0 0-0.2 Laboratory test finding 06/15/2009 Erythrocyte Sed Rate 5 MM/HR 0-15 Martha (Antinuclear Antibodies) 06/15/2009 Antinuclear AB NEGATIVE Negative Laboratory test finding 06/15/2009 Lyme Disease Serology Negative Negative 79 1 [id number] 2 SEE RESULT BELOW Name: KASANDRA BRANDT : [address]: Jesus Resendez MD Acct: [id number] Unit: [id number] AGE: 41 Location: [facility] Re08/28/17 SEX: F Status: DEP REF SPEC: [id number] SHER: 08/28/17 [facility] DR: Jesus Resendez MD REQ: [id number] RECD: 08/28/17 STATUS: SELMA THOMPSON DR: Charles Rolon MD _ SOURCE: GAS ANTRUM SPDESC: ORDERED: Clotest COMMENTS: [id number] Procedure Result Reported Site Clotest Final 08/29/17- 0759 ML Clotest Negative * ML - MAIN LAB ([facility]) . END OF REPORT * ML=Testing performed at Main Lab DEPARTMENT OF PATHOLOGY, [address] [place] [address] Chino Lindo M.D. Director [facility] # [id number] 4 SEE RESULT BELOW Name: KASANDRA BRANDT : [address]: Jesus Resendez MD Acct: [id number] Unit: [id number] AGE: 41 Location: [facility] Re08/28/17 SEX: F Status: DEP REF SPEC: [id number] SHER: 08/28/17-[address]: Jesus Resendez MD REQ: [id number] RECD: 08/28/17-983 STATUS: ASPEN THOMPSON DR: Charles Rolon MD _ ORDERED: LEVEL 4/2 COMMENTS: [id number] FINAL DIAGNOSIS 1. Small bowel, duodenum, biopsy: -- Small bowel mucosa with normal villous architecture and no significant pathologic abnormality. 2. Gastroesophageal junction, biopsy: -- Gastroesophageal junction zone mucosa with mild reactive glandular and squamous epithelial changes. -- No specific features of active reflux esophagitis identified. -- No goblet cell/intestinal metaplasia or dysplasia identified. CLINICAL HISTORY Gastroesophageal reflux disease POST-OPERATIVE DIAGNOSIS Esophagus ? normal, biopsied; stomach ? normal, biopsied; duodenum ? normal, biopied GROSS DESCRIPTION 1. The specimen is received in formalin labeled, Biopsy Duodenum, and consists of two chung-pink irregular soft tissue fragments measuring 0.2 x 0.2 x 0.1 cm and 0.3 x 0.2 x 0.1 cm which are submitted entirely in one cassette. 2. The specimen is received in formalin labeled, Biopsy [facility], and consists of a 0.7 by up to 0.3 x 0.1 cm chung-pink irregular soft tissue fragment which is submitted entirely in one cassette. Signed (signature on file) Chino Lindo MD 1616 END OF REPORT * ML=Testing performed at Main Lab DEPARTMENT OF PATHOLOGY, [address] [place] [address] Chino Lindo M.D. Director [facility] # [id number] 5 epis , few wbc's , neg sugar , neg whiff 6 Because ethnic data is not always readily available, this report includes an eGFR for both -Americans and non- Americans. The National Kidney Disease Education Program (NKDEP) does not endorse the use of the MDRD equation for patients that are not between the ages of 18 and 70, are , have extremes of body size, muscle mass, or nutritional status, or are non- or non-. According to the National Kidney Foundation, irrespective of diagnosis, the stage of the disease is based on the level of kidney function: Stage Description GFR(mL/min/1.73 m(2)) 1 Kidney damage with normal or decreased GFR 90 2 Kidney damage with mild decrease in GFR 60-89 3 Moderate decrease in GFR 30-59 4 Severe decrease in GFR 15-29 5 Kidney failure <15 (or dialysis) 7 Desirable <150 Borderline high 150-199 High 200-499 Very High >500 8 Desirable <200 Borderline high 200-239 High >239 9 Low <40 Desirable: 40-60 High: >60 10 Desirable: <100 mg/dL Near Optimal: 100-129 mg/dL Borderline High: 130-159 mg/dL High: 160-189 mg/dL Very High: >189 mg/dL 11 ADDITIONAL INFORMATION This is a qualitative test. The TB antigen IU/mL value is required for documentation on certain government reporting forms (e.g., Form I-693), but this value should not be used to monitor disease progression or response to therapy. Diagnosing or excluding tuberculosis disease, and assessing the probability of LTBI, require a combination of epidemiological, historical, medical, and diagnostic findings that should be taken into account when interpreting QuantiFERON-TB results. Test Performed by: [place] [address] Community Service Specialist: Ramos Zamora II, M.D., Ph.D. 12 RUN DATE: 07/04/12 [facility] LAB LIVE PAGE 1 RUN TIME: [address] [place] [id number] Specimen Inquiry Name: KASANDRA BRANDT : [address]: Jesus Resendez MD Acct: [id number] Unit: [id number] AGE: 36 Location: [facility] Re07/02/12 SEX: F Status: REG REF SPEC: [id number] SHER: 07/02/12- SUBM DR: Dipti GONZALEZ, Jesus Black REQ: [id number] RECD: 07/03/12 STATUS: ASPEN THOMPSON DR: Mae GONZALEZ,[facility]erged With [facility] ENTERED: 07/03/12 SP TYPE: SURGICAL P Breana Pena MD _ ORDERED: LEVEL IV FINAL DIAGNOSIS GE junction, biopsy: A. Gastric cardia type mucosa with mild to moderate nonspecific diffuse chronic inflammation with reactive changes. B. No active gastritis or Helicobacter pylori-like organisms are identified. C. No goblet cell metaplasia or dysplasia identified. D. No squamous component identified. CLINICAL HISTORY Gastroesophageal reflux disease POST-OPERATIVE DIAGNOSIS Esophagus - Brady's, biopsy x2; stomach and duodenum - normal GROSS DESCRIPTION The specimen is received in formalin labelled Kasandra Brandt, GE Junction Biopsy, and consists of two chung, soft tissue fragments measuring 1.2 x 0.3 x 0.2 cm. Submitted entirely, one cassette. Signed (signature on file) Chino Lindo MD 1509 END OF REPORT * ML=Testing performed at Main Lab DEPARTMENT OF PATHOLOGY, [address] [place] [address] Chino Lindo M.D. Director [facility] Permit #[id number] 13 Nonimmune <0.91 Equivocal 0.91 - 1.09 Immune >1.09 14 Vitamin D deficiency has been defined by the Oxly of Medicine and an Endocrine Society practice guideline as a level of serum 25-OH vitamin D less than 20 ng/mL (1,2). The Endocrine Society went on to further define vitamin D insufficiency as a level between 21 and 29 ng/mL (2). 1. IOM (Oxly of Medicine). 2010. Dietary reference intakes for calcium and D. [place]: The National Academies Press. 2. Deann MF, Kayleigh LOPEZ, Konstantin RAPP, et al. Evaluation, treatment, and prevention of vitamin D deficiency: an Endocrine Society clinical practice guideline. JCEM. 2010; 96(7):1911-30. 15 Status of Immunity Anti-HBs Level Inconsistent with Immunity 0.00 - 0.99 Consistent with Immunity >0.99 . An Index Value of 1.00 is equivalent to 10 mIU/mL. However the magnitude of the Index Value is not indicative of the total amount of antibody present. 16 Non-immune <5 Equivocal 5 - 9 Immune >9 17 Negative <0.91 Equivocal 0.91 - 1.09 Positive >1.09 . Presence of antibodies to Rubeola is presumptive evidence of immunity except when active infection is suspected. 18 Negative <0.91 Equivocal 0.91 - 1.09 Positive >1.09 Presence of antibodies to Mumps is presumptive evidence of immunity except when active infection is suspected. 19 2 SST; 1 RED TOP SPUN POURED OFF IN 2 TRANSPORT TUBES 1 TRANSPORT TUBE HAS BEEN REFRIDGERATED 1 TRANSPORT TUBE HAS BEEN FROZEN ; SPLIT SPECIMEN 20 Recent studies consider the lower limit of 32.0 ng/mL to be a threshold for optimal health. Paramjit HERNANDEZ. J Nutr. 2005 Sep;135(2):317-22. 21 Negative 0 - 3 Weak Positive 4 - 10 Positive >10 . Tissue Transglutaminase (tTG) has been identified as the endomysial antigen. Studies have demonstr- ated that endomysial IgA antibodies have over 99% specificity for gluten sensitive enteropathy. 22 Negative 0 - 5 Weak Positive 6 - 9 Positive >9 23 ---- RUN DATE: 11/19/09 [facility] NMI LIVE PAGE 1 RUN TIME: 1259 Specimen Inquiry RUN USER: INTERFACE -- Name: KASANDRA BRANDT Status: REG REF Re11/18/09 Age/Sex: 34/F Unit#: [id number] Location: [facility] : [birth year] -- Specimen: [id number] Spec Date: 11/18/[address]: Andrea lopez MD Spec Type: CYTOLOGY Received: 11/19/09 Copies to: Cari Maria SOURCE CEREBROSPINAL FLUID tube #4 PATIENT INFORMATION ACTUAL COLLECTION DATE: 11/18/09 PATIENT HISTORY: cranial neuropathy GROSS DESCRIPTION 1 mls of clear CSF DIAGNOSIS Negative for malignant cells. Initial evaluation performed by Franca LUONG([facility]) 11/19/09 Final Interpretation electronically signed by: CHINO LINDO MD 11/19/09 12 58 -- -- DEPARTMENT OF PATHOLOGY, [address] [place] [address] [facility] Permit #[id number] Chino Lindo M.D. Director Gerry Hutchins M.D. [employer] Operator Dir oscar -- 24 Test Performed by: [facility] Dpt of Lab Med and Pathology [address] [place] [address] Community Service Specialist: Campbell Aparicio III, M.D. 25 The oligoclonal band assay detected 3 or less IgG bands in the CSF, which are not present in the serum. This is a Negative result. CSF is used in the diagnosis of MS by identifying increased intrathecal IgG synthesis qualitatively (Oligoclonal Bands) or quantitatively (IgG index or IgG synthesis rate, CSF). Oligoclonal bands (4 or more CSF-specific bands) and/or an elevated CSF IgG index are detected in up to 90% of patients with MS. These findings, however, are not specific for MS as CSF-specific IgG synthesis may also be found in patients with other neurologic diseases including infectious, inflammatory, cerebrovascular, and paraneoplastic disorders. Test Performed by: [facility] Dpt of Lab Med and Pathology [address] [place] [address] Community Service Specialist: Campbell Aapricio III, M.D. 26 Test Performed by: [facility] Dpt of Lab Med and Pathology [address] [place] [address] Community Service Specialist: Campbell Aparicio III, M.D. 27 Test Performed by: [facility] Dpt of Lab Med and Pathology [address] [place] [address] Community Service Specialist: Campbell Aparicio III, M.D. 28 TUBE #2 29 TUBE #1 30 NO WBC'S OBSERVED IN CONCENTRATED SMEAR. 31 Slide and differential reviewed. No bacteria, blasts or other malignant cells seen. REVIEWED BY CHINO LINDO MD 32 TUBE #4 33 NO WBC'S OBSERVED IN CONCENTRATED SMEAR. 34 Slide and differential reviewed. No bacteria, blasts or other malignant cells seen. REVIEWED BY CHINO LINDO MD 35 TUBE #3 36 This test was developed and its performance characteristics determined by Laboratory Medicine and Pathology, [facility]. This test has not been cleared or approved by the U.S. Food and Drug Administration. Test performed by: [facility] [employer] [address] [place], [place] [address] NEGATIVE 37 This test was developed and its performance characteristics determined by Laboratory Medicine and Pathology, [facility]. This test has not been cleared or approved by the U.S. Food and Drug Administration. Test performed by: [facility] [address] [place], [place] [address] NEGATIVE 38 Test Performed by: [facility] Dpt of Lab Med and Pathology [address] [place] [address] Community Service Specialist: Campbell Aparicio III, M.D. 39 Reflexed test not required 40 Reflexed test not required 41 Reflexed test not required 42 Reflexed test not required 43 Reflexed test not required 44 Reflexed test not required 45 No evidence of a lupus-like anticoagulant based on normal results of Prothrombin Time (PT), Activated Partial Thromboplastin Time (APTT) and Dilute Russells Viper Venom Time (DRVVT). Interpretation not reviewed by physician. Test Performed by: [facility] Dpt of Lab Med and Pathology [address] [place] [address] Community Service Specialist: Campbell Aparicio III, M.D. 46 This test is a direct mutation analysis of leukocyte genomic DNA by the Invader Assay system (Invader, Cyt[employer], [place], [place]). 47 Analyte Specific Reagent This test was developed and its performance characteristics determined by Laboratory Medicine and Pathology, [facility]. This test has not been cleared or approved by the U.S. Food and Drug Administration. 48 This individual DOES NOT have the factor V Leiden (R506Q) mutation. Although the factor V Leiden mutation is absent, the individual may have other genetic and environmental risk factors for thrombosis. Consider additional testing for hemostatic disorders associated with increased thrombosis risk, if indicated. Consider genetic consultation and counseling of potentially affected family members regarding laboratory testing. 49 Test Performed by: [facility] Dpt of Lab Med and Pathology [address] [place] [address] Community Service Specialist: Campbell Aparicio III, M.D. 50 -- REFERENCE VALUE -- <=13 (Fasting) Test Performed by: [facility] Dpt of Lab Med and Pathology [address] [place] [address] Community Service Specialist: Campbell Aparicio III, M.D. 51 Interpretation: Negative (<10.0 GPL) Test Performed by: [facility] Dpt of Lab Med and Pathology [address] [place] [address] Community Service Specialist: Campbell Aparicio III, M.D. 52 Interpretation: Negative (<10.0 MPL) Test Performed by: [facility] Dpt of Lab Med and Pathology [address] [place] [address] Community Service Specialist: Campbell Aparicio III, M.D. 53 Interpretation: Negative (<10.0 APL) Test Performed by: [facility] Dpt of Lab Med and Pathology [address] [place] [address] Community Service Specialist: Campbell Aparicio III, M.D. 54 <10 Negative 10-20 Equivocal- Found in small percentage of the healthy population; may be reactive >20 Positive - Risk factor for thrombosis and loss 55 <20 Negative 20-30 Equivocal- Found in small percentage of the healthy population; may be reactive >30 Positive - Risk factor for thrombosis 56 Clinical Significance: The Antiphospholipid Antibody Syndrome (APS) is a clinical pathologic correlation that includes a clinical event (e.g. thrombosis, loss, thrombocytopenia) and persistent positive Antiphospholipid Antibodies (IgM or IgG DUSTY >40 MPL/GPL, IgM or IgG anti-B2GP1 antibodies, or a Lupus Anticoagulant). The IgA isotype has been implicated in smaller studies, but have not yet been incorporated into the APS criteria. International consensus guidelines suggest waiting at least 12 weeks before retesting to confirm antibody persistence. Reference J Thromb Haemost 2006: 4; 295. <25 Negative 25-35 Equivocal- Found in small percentage of the healthy population; may be reactive >35 Positive - Risk factor for thrombosis and loss Test Performed at: [facility] [address] [place] [address] Torie Bueno MD, PhD 57 Test Performed by: [facility] Dpt of Lab Med and Pathology [address] [place] [address] Community Service Specialist: Campbell Aparicio III, M.D. 58 Heparin levels greater than 1 U/ml, inhibitors of the APTT test system (especially lupus anticoagulant), or inhibitors of bovine factor V (such antibodies that may arise in patients treated with certain bovine topical thrombin preparations) may produce a falsely normal Protein S Activity result. Suggest clinical correlation and if indicated consider repeat assay of Protein S Activity and Antigen in the absence of anticoagulation therapy. Test Performed by: [facility] Dpt of Lab Med and Pathology [address] [place] [address] Community Service Specialist: Campbell Aparicio III, M.D. 59 This test is a direct mutation analysis of leukocyte genomic DNA by the Invader Assay system (Invader, [employer], [place], [place]). 60 Analyte Specific Reagent This test was developed and its performance characteristics determined by Laboratory Medicine and Pathology, [facility]. This test has not been cleared or approved by the U.S. Food and Drug Administration. 61 This individual DOES NOT have the Prothrombin [id number] mutation. Although the Prothrombin [id number] mutation is absent, the individual may have other genetic and environmental risk factors for thrombosis. Consider additional testing for hemostatic disorders associated with increased thrombosis risk, if indicated. Consider genetic consultation and counseling of potentially affected family members regarding laboratory testing. 62 Test Performed by: [facility] Dpt of [facility] [address] [place] [address] Community Service Specialist: Campbell Aparicio III, M.D. 63 Anion gap measurement may be of limited value in the presence of any alkalosis, especially in a combined acid base disorder. . 64 Note change in reference range as of 04/16/08. The change was based on recommendations from the [place] [employer]. 65 Please note change in reference range effective 08 . 66 Because ethnic data is not always readily available, this report includes an eGFR for both -Americans and non- Americans. The National Kidney Disease Education Program (NKDEP) does not endorse the use of the MDRD equation for patients that are not between the ages of 18 and 70, are , have extremes of body size, muscle mass, or nutritional status, or are non- or non-. According to the National Kidney Foundation, irrespective of diagnosis, the stage of the disease is based on the level of kidney function: Stage Description GFR(mL/min/1.73 m(2)) 1 Kidney damage with normal or decreased GFR 90 2 Kidney damage with mild decrease in GFR 60-89 3 Moderate decrease in GFR 30-59 4 Severe decrease in GFR 15-29 5 Kidney failure <15 (or dialysis) 67 If is still suspected, please repeat test after 48 to 72 hours. . 68 -- REFERENCE VALUE -- 25-HYDROXY D TOTAL (D2+D3) Optimum levels in the normal population are 25-80 Test Performed by: [facility] [address] [place] [address] Community Service Specialist: Campbell Aparicio III, M.D. 69 Test Performed by: [facility] [address] [place] [address] Community Service Specialist: Campbell Aparicio III, M.D. 70 Anion gap measurement may be of limited value in the presence of any alkalosis, especially in a combined acid base disorder. . 71 Note change in reference range as of 04/16/08. The change was based on recommendations from the [place] [employer]. 72 Please note change in reference range effective 08 . 73 A metabolite of Naproxen, O-desmethylnaproxen, has been shown to interfere with the Jendrassik-David method for measuring total bilirubin. Samples from patients who have taken Naproxen have shown spurious elevation in total bilirubin levels. 74 Because ethnic data is not always readily available, this report includes an eGFR for both -Americans and non- Americans. The National Kidney Disease Education Program (NKDEP) does not endorse the use of the MDRD equation for patients that are not between the ages of 18 and 70, are , have extremes of body size, muscle mass, or nutritional status, or are non- or non-. According to the National Kidney Foundation, irrespective of diagnosis, the stage of the disease is based on the level of kidney function: Stage Description GFR(mL/min/1.73 m(2)) 1 Kidney damage with normal or decreased GFR 90 2 Kidney damage with mild decrease in GFR 60-89 3 Moderate decrease in GFR 30-59 4 Severe decrease in GFR 15-29 5 Kidney failure <15 (or dialysis) 75 CHOLESTEROL INTERPRETATION: Desirable: Less than 200 MG/DL Borderline-High Risk: 200-239 MG/DL High-Risk: 240 MG/DL and over 76 HDL INTERPRETATION: Undesirable: High Risk: Less than 40 MG/DL Desirable: Low Risk: Greater than 60 MG/DL 77 LDL INTERPRETATION: Low Risk Optimal Level: LDL Less than 100 MG/DL Near or Above Optimal: LDL 100-129 MG/DL Borderline High Risk: LDL 130-159 MG/DL High Risk: LDL 160-189 MG/DL Very High Risk: LDL Greater than 189 MG/DL 78 PLEASE NOTE NEW REFERENCE RANGES. 79 Test Performed by: [facility] [address] [place] [address] Community Service Specialist: Campbell Aparicio III, M.D. Procedures Date CPT Code Description Status 09/17/2017 97186 Pulse Oximetry Completed 02/22/2015 41869 CPHL SHQ Completed 06/04/2013 12478 CPHL SHQ Completed 02/10/2013 01582 Pulse Oximetry Completed 12/16/2012 62484 Holter Monitor Completed 02/26/2012 99549 Vision Test- screening test of visual acuity, Completed quantitative, bila 06/18/2009 09298 Pulse Oximetry Completed Encounters Type Date Location Provider CPT E/M Dx Office Visit 10/26/2017 8:00a [place] [address] S39.013A Office Visit 09/17/2017 2:15p [facility] [address], [address] R05 Bessy J11.1 Office Visit 09/14/2017 3:30p [facility] Araceli Martinez, REFRIGERATION SUPERVISOR 56313 J11.1 Office Visit 07/17/2017 10:50a [facility] Charles Rolon M.D. 21494 M54.5 Office Visit 05/26/2017 11:30a [facility] [address] Afnp-C 21813 N76.0 Office Visit 09/20/2016 11:40a [facility] Charles Rolon M.D. 11659 M54.5 Office Visit 09/01/2016 3:15p [facility] Geneva Ayala, MILLY 78321 Z00.00 Office Visit 02/18/2014 12:40p [facility] Office Phan Rdz M.D. 74710 401.1 Office Visit 01/09/2014 10:00a [facility] Phan Rdz M.D. 59734 401.1 Office Visit 12/05/2013 2:30p [facility] Phan Rdz M.D. 70123 401.1 784.0 Office Visit 11/28/2013 2:20p [facility] Phan Rdz M.D. 19434 401.1 Office Visit 11/10/2013 10:00a [facility] Rubens Corona M.D. 99151 466.0 Office Visit 10/11/2013 11:45a [facility] Office Phan Rdz M.D. 08929 462 Office Visit 02/10/2013 3:30p [facility] Charles Rolon M.D. 81396 462 Office Visit 12/16/2012 3:00p [place] [address] 785.1 Office Visit 10/30/2012 1:00p [place] [address] 300.00 788.69 Office Visit 05/30/2012 2:45p [facility] MILLY Scott 69224 462 Office Visit 04/19/2012 4:00p [facility] Breana Pena M.D. 09868 V74.1 Office Visit 04/10/2012 10:15a [facility] Breana Pena M.D. 49297 v74.1 Office Visit 02/29/2012 1:30p [facility] Office Cari Schrader M.D. 75218 v74.1 Office Visit 02/26/2012 10:20a [facility] Cari Schrader M.D. 20893 V70.0 V65.49 268.9 v06.5 v74.1 V72.0 Office Visit 06/29/2011 3:00p [facility] Geneva Ayala [facility] 61619 723.1 V04.81 Office Visit 04/17/2011 4:00p [facility] [facility] Cari Schrader M.D. 26356 787.02 Office Visit 11/29/2010 4:00p [facility] [facility] Charles Rolon M.D. 11271 472.1 Office Visit 09/26/2010 11:10a [facility] [facility] Carlitos Berry M.D. 74311 462 Office Visit 08/17/2010 1:45p [facility] Geneva Ayala [facility] 71836 V06.4 V04.81 v06.4 Office Visit 08/11/2010 2:00p [facility] [facility] Geneva Ayala [facility] 28731 034.0 780.60 Office Visit 01/10/2010 3:00p [facility] [facility] Cari Schrader M.D. 12524 493.10 346.10 352.6 780.79 Office Visit 06/18/2009 2:15p [facility] [place] [facility] Charles Rolon M.D. 18826 786.09 Office Visit 04/20/2009 9:30a [facility] Cassie LaneArminHerlinda [address] 346.10 Plan of Care Future Appointment(s):05/01/2018 11:10 am - Charles Rolon M.D. at [facility] Jzflyt6504/24/2018 - Reinier Walker MDL03.115 Cellulitis of right lower limbNew Medication:Cephalexin 250 mgDiflucan 150 mgAllComments:~B_~U_Medication Management~b_~u_ Patient Understands medications she's taking? Yes No Are there Barriers to Adherence? Yes No Has the patient been asked about herbal supplements and therapies, and OTC meds? Yes No
[2018-05-16] MEDS ORDERED: Propofol* 10 MG/ML 20 ML BTL IV PUSH ONE (07:19)
[2018-05-16] MEDS ORDERED: Atracurium* 10 MG/ML 10 ML VIAL ONE (07:20)
[2018-05-16] MEDS ORDERED: fentaNYL* 50 MCG/ML 2 ML VIAL (100 MCG VIAL) ONE ×4 (07:20→12:43)
[2018-05-16] MEDS ORDERED: Midazolam* 1 MG/ML 5 ML VIAL (5 MG) ONE (07:20)
[2018-05-16] MEDS ORDERED: Scopolamine 1.5 mg* PATCH ONE (07:31)
[2018-05-16] MEDS ORDERED: Thrombin 5,000 UNITS* 1 APPLIC KIT - topical use - TOPICAL ONE (07:36)
[2018-05-16] MEDS ORDERED: Lidocain 1% EPI 1:100,000 * 30 ML MDV ONE (07:36)
[2018-05-16] MEDS ORDERED: Bacitracin IV* 50,000 UNITS INJ ONE (07:37)
[2018-05-16] MEDS ORDERED: Dexamethasone IV* 4 MG/ML 1 ML (4 MG) ONE ×2 (08:12→10:51)
[2018-05-16] MEDS ORDERED: DiMENhydriNATE IV* 50 MG/ML VIAL IV PUSH PRN (09:48)
[2018-05-16] MEDS ORDERED: Naloxone* 0.4 MG/ML 1 ML VIAL IV PRN (09:48)
[2018-05-16] MEDS ORDERED: HYDROmorphone INJ1* 1 MG/ML SYRINGE IV PRN (09:48)
[2018-05-16] MEDS ORDERED: fentaNYL* 50 MCG/ML 2 ML VIAL (100 MCG VIAL) IV PRN (09:48)
[2018-05-16] MEDS ORDERED: Acetaminophen IV 1GM/100ML * 1,000 MG/100 ML VIAL IVPB ONE (09:48)
[2018-05-16] MEDS ORDERED: Ondansetron INJ* 2 MG/ML VIAL IV PRN (09:48)
[2018-05-16] MEDS ORDERED: Ondansetron INJ* 2 MG/ML VIAL ONE (11:08)
[2018-05-16] MEDS ORDERED: Acetaminophen IV 1GM/100ML * 100 ML ONE (11:48)
[2018-05-16] MEDS ORDERED: Morphine VIAL* 10 MG/ML 1 ML VIAL ONE (14:07)
--- NOTE | 2018-05-16 14:59 | RAD ---
INDICATION: Posterior cervical discectomy. COMPARISON: March 08, 2018 MRI. TECHNIQUE: 66 seconds fluoroscopy. FINDINGS: Spot images document instrumentation at the C5-C6 level. IMPRESSION: Interoperative control films. CPT II Codes: G9500
[2018-05-16] MEDS ORDERED: RIZATRIPTAN 10 MG PO PRN (15:54)
[2018-05-16] MEDS: Ondansetron TAB* 4 MG PO PRN (17:02)
[2018-05-16] MEDS: HYDROcodone/ACETAMIN 5-325 MG* 1 TAB PO PRN (20:52)
[2018-05-16] MEDS ORDERED: Verapamil SR CAP* 180 MG PO SCH (21:00)
[2018-05-16] MEDS ORDERED: Gabapentin CAP(*) 100 MG PO SCH (21:00)
[2018-05-17] MEDS: HYDROcodone/ACETAMIN 5-325 MG* 1 TAB PO PRN ×2 (03:54→07:45)
[2018-05-17] MEDS: Ondansetron TAB* 4 MG PO PRN ×2 (03:54→11:39)
--- NOTE | 2018-05-17 08:23 | PN ---
Progress Note - Progress Note Date of Service: 05/17/18 SOAP: Subjective: [] No events ON. Patient tolerated the procedure well yesterday. RUE preop pain almost resolved. Some incisional neck pain and muscle spasms. RUE preop weakness and numbness present. Ambulates, tolerates po well, Voids. Wants to go home. Objective: []VSS Afebrile wound s,c,d AAOx3 ANDRY, CN II-XII grossly intact. Motor 5/5 RUE 4-/5 (stable c/w preop per patient) RLE 4-5/5 Sensory grossly intact to light touch except Rt L5, S1 Assessment: []42yof POD#1 Rt C5-6 MIS foraminotomy Plan: []Monitor VS, Neurochecks. Flexeril Dc today. Full instructions were given. Marj Ambrocio MD
[2018-05-17] MEDS ORDERED: Cyclobenzaprine TAB* 10 MG PO PRN (08:28)
[2018-05-17] MEDS ORDERED: DEXLANSOPRAZOLE 60 MG PO SCH (09:00)
[2018-05-17 11:41] VITALS: BP 126/67
--- NOTE | 2018-05-17 18:37 | OP ---
DATE OF SURGERY: 05/16/18 - ROOM #339 DATE OF : 79 SURGEON: Dr. Pau Ambrocio. NOZZLE TENDER: BOBY Shi. Case was done with the assistance of a surgical PA because of the complexity of the case. ANESTHESIA: General. PRE-OP DIAGNOSIS: Right C5-6 herniated nucleus pulposus and neuroforaminal stenosis. POST-OP DIAGNOSIS: Right C5-6 herniated nucleus pulposus and neuroforaminal stenosis. OPERATIVE PROCEDURE: The patient underwent a right minimally invasive C5-6 partial hemilaminectomy, facetectomy, and extended foraminotomy. ESTIMATED BLOOD LOSS: 30 cc. COMPLICATIONS: None. SUMMARY: The patient is a very pleasant 42-year-old female with complaints of neck pain radiating to the right upper extremity. The patient had MRI findings consistent with a large right C5-6 disk osteophyte complex and disk herniation with neuroforaminal stenosis. After explaining all surgical options, the patient elected for a posterior cervical foraminotomy after failing all conservative modalities. After explaining to the patient and her all indications, expectations, limitations, and possible complications of the procedure, complications include but not limited to bleeding, infection, risk of injury to adjacent structures, coma, paralysis, , need for additional procedure, anesthesia risks, stroke, blindness, cancer, instability, adjacent level disease, and spinal fluid leak, the patient was agreeable to proceed with surgery and informed consent was obtained. The patient understood that her condition may not improve and in fact may get worse after the surgery and that she may need to have additional procedure in the future. She understood that operative plan may be modified according to the intraoperative findings and conditions. DESCRIPTION OF PROCEDURE: The patient was brought to the operating room and was placed under general anesthesia by the anesthesia team. She was carefully positioned prone on the Cullen table and all bony prominences were meticulously padded. Hair was removed from the surgical clippers and skin was prepped and draped in a standard fashion. After appropriate surgical pause and patient identification, the appropriate surgical level was identified with the use of intraoperative fluoroscopic imaging. A small paramedian incision approximately 25 mm in length was marked on the skin over the C5-6 disk space and the skin was infiltrated with local anesthetic. A #10 surgical blade was used to incise the skin. The incision was carried down through the subcutaneous tissue with Bovie cautery. The dorsal fascia was carefully incised with #10 surgical blade and under fluoroscopic verification and over a series of tubular dilators, the METRx tubular retractor system was introduced into the field over the C5-6 disk space spanning between the right dayron-lamina of C5 and C6 and the medial C5-6 facet. Operative microscope was brought into the field and after removing carefully residual paraspinal musculature, the base of spinous process and right dayron-lamina and the remainder of the portion of the C5-6 facet was identified. High-speed drill was used to fashion partial hemilaminectomy at C5 and C6 as well a keyhole laminotomy and partial facetectomy at the medial portion of the C5-6 facet. The laminectomy was completed with use of #1 Kerrison punches. The ligamentum flavum was carefully removed and after careful removal of the medial part of the C5-6 facet, the C6 nerve root was clearly identified. Significant neuroforaminal stenosis was identified and after careful dissection and foraminotomy with high-speed drill and #1 Kerrison, the foramen was enlarged and the exiting nerve root was freed up from any pressure phenomenon. Then, attention was paid in order to explore the C5-6 disk space with the use of a small nerve hook. No obvious free disk fragment was identified and after repeating the same process from the superior aspect of the nerve root and also confirming that the medial and superior aspects of the C6 and the medial and inferior aspect of C5 facet was carefully skeletonized. The thecal sac and the nerve root was found to be free of any pressure phenomenon, while the thecal sac was pulsating nicely. After confirmation of meticulous hemostasis and copious irrigation, the tubular retractor was gently removed and meticulous hemostasis was obtained. After copious irrigation and meticulous inspection, the wound was closed by layers with 2-0 interrupted Vicryl suture to the dorsal fascia and 2-0 interrupted Vicryl suture to approximate the subcutaneous tissue, while the wound was covered with Dermabond. At the end of the procedure, all counts were reported to be correct. The patient remained hemodynamically stable throughout the case and the patient was then turned supine, was extubated and was transferred to Recovery in excellent condition moving all extremities freely. The case was done with assistance of surgical PA because of the complexity of the case. [id number]/[facility] #: [id number] MTDCandace
--- NOTE | 2018-05-18 20:10 | DS ---
DISCHARGE SUMMARY: DATE OF ADMISSION: 05/16/18 DATE OF DISCHARGE: 05/17/18 PROCEDURE: The patient underwent a right C5-6 partial hemilaminectomy, facetectomy, and extended foraminotomy. ADMISSION DIAGNOSES: 1. Right C5-6 herniated nucleus pulposus. 2. Cervical radiculopathy. DISCHARGE DIAGNOSES: 1. Right C5-6 herniated nucleus pulposus. 2. Cervical radiculopathy. DISPOSITION: Home. DISCHARGE CONDITION: Good. HOSPITAL COURSE: The patient is a very pleasant 42-year-old female with complaints of neck pain radiating to the right upper extremity. MRI revealed right side C5-6 disk osteophyte complex with disk herniation and neural foraminal stenosis. She was offered the option of surgical intervention in the form of right C5-6 minimally invasive foraminotomy. The patient underwent the above procedure. She tolerated the procedure well, was extubated, and was transferred to the regular floor in excellent condition. The patient continued to improve. On postoperative day 1, she had good pain control with p.o. medication. Her preoperative right upper extremity pain had completely resolved and had been able to ambulate and tolerate p.o. well and void and she was felt to be ready to be discharged home. Full discharge instructions were given to the patient. [id number]/[facility] #: [id number] GUERO
== END 2018-05-17 13:35 | disposition home or self-care (01) ==
LOC: AA 05:52 → INTOOBSV 05:52 → SSU 13:55
PROVIDERS: ADMIT Neurological Surgery; ATTEND Neurological Surgery
PROC: 01N10ZZ Release Cervical Nerve, Open Approach (ICD-10-PCS; principal; 2018-05-16 07:30)
DX: M50.122 Cervical disc disorder at C5-C6 level with radiculopathy (principal); Z91.041 Radiographic dye allergy status; Z79.899 Other long term (current) drug therapy; Z23 Encounter for immunization
CPT/HCPCS: 76001; 81025; 90471; 90686; A9270-GY; G0008; G0378; J0690; J1100; J2250; J2270; J2405; J2704; J3010

== ENCOUNTER 2018-11-28 11:13 | Observation (INO) | payer OTHER ==
[~2018-11-28 11:13] MED LIST changes: -Buffered Lidocaine 0.9% SYRIN* 5 ML/SYR SYRINGE INTRADERM ONE; +Buffered Lidocaine 1% SYRIN* 1 ML/SYRINGE INTRADERM ONE; +Dexamethasone IV* 4 MG/ML 1 ML (4 MG) IV SLOW PU ONE; +Lactated Ringers 1000 ML Bag* 1,000 ML IV SCH; +Scopolamine 1.5 mg* PATCH TRANSDERM SCH
[2018-11-28] MEDS ORDERED: Dexamethasone IV* 4 MG/ML 1 ML (4 MG) ONE (12:38)
[2018-11-28] MEDS ORDERED: ceFAZolin 2 GM in NS PREMIX(*) 2 GM/100 ML BAG IVPB ONE (12:39)
[2018-11-28] MEDS ORDERED: Buffered Lidocaine 1% SYRIN* 1 ML/SYRINGE INTRADERM ONE (12:39)
[2018-11-28] MEDS ORDERED: Scopolamine 1.5 mg* PATCH ONE (12:39)
[2018-11-28] MEDS ORDERED: Lidocaine 1% MPF wEPI 200,000* 30 ML SDV ONE (14:25)
[2018-11-28] MEDS ORDERED: Thrombin 5,000 UNITS* 1 APPLIC KIT - topical use - TOPICAL ONE (14:25)
[2018-11-28] MEDS ORDERED: Bacitracin INJECTION* 50,000 UNITS ONE (14:26)
[2018-11-28] MEDS ORDERED: Ondansetron INJ* 2 MG/ML VIAL ONE ×2 (14:45→18:19)
[2018-11-28] MEDS ORDERED: Midazolam* 1 MG/ML 5 ML VIAL (5 MG) ONE (14:45)
[2018-11-28] MEDS ORDERED: Lidocaine 2% PF * 5 ML VIAL ONE (14:45)
[2018-11-28] MEDS ORDERED: fentaNYL* 50 MCG/ML 5 ML VIAL (250 MCG VIAL) ONE (14:45)
[2018-11-28] MEDS ORDERED: fentaNYL* 50 MCG/ML 2 ML VIAL (100 MCG VIAL) ONE (15:32)
[2018-11-28] MEDS ORDERED: Naloxone* 0.4 MG/ML 1 ML VIAL IV PRN (16:10)
[2018-11-28] MEDS ORDERED: fentaNYL* 50 MCG/ML 2 ML VIAL (100 MCG VIAL) IV PRN (16:10)
[2018-11-28] MEDS ORDERED: Ondansetron INJ* 2 MG/ML VIAL IV PRN ×2 (16:10→19:14)
[2018-11-28] MEDS ORDERED: DiMENhydriNATE IV* 50 MG/ML VIAL IV PUSH PRN (16:10)
[2018-11-28] MEDS ORDERED: HYDROmorphone INJ1* 1 MG/ML SYRINGE ONE (18:19)
[2018-11-28] MEDS: HYDROmorphone INJ1* 1 MG/ML SYRINGE IV PRN ×2 (18:29→19:21)
[2018-11-28] MEDS ORDERED: Magnesium Hydroxide LIQ* 30 ML UDC PO PRN (19:14)
[2018-11-28] MEDS ORDERED: Lactated Ringers 1000 ML Bag* 1,000 ML IV SCH (20:00)
[2018-11-28] MEDS ORDERED: Verapamil SR CAP* 180 MG PO SCH (21:00)
[2018-11-28] MEDS ORDERED: Gabapentin CAP(*) 100 MG PO SCH (21:00)
[2018-11-28] MEDS: HYDROcodone/ACETAMIN 5-325 MG* 1 TAB PO PRN (21:24)
[2018-11-29] MEDS: HYDROcodone/ACETAMIN 5-325 MG* 1 TAB PO PRN (05:34)
[2018-11-29 07:49] VITALS: BP 104/65
--- NOTE | 2018-11-29 08:18 | PN ---
Progress Note - Progress Note Date of Service: 11/29/18 SOAP: Subjective: [S/p lumbar discectomy L4-5 left redo Feeling well this morning Ambulating independently 20 min on nursing unit. Eating and drinking well Denies headache, nausea Pain well controlled with PO medication. Reports mild right foot numbness/tingling, RLE pain resolved. ] Objective: [ Vital Signs: Temp Pulse Resp BP Pulse Ox 98.8 F 56 18 104/65 100 11/29/18 07:24 11/29/18 07:24 11/29/18 07:24 11/29/18 07:24 11/29/18 07:24 General: Alert, recumbent in bed, NAD Neuro: Mild RLE numbness, strength 5/5 bilaterally Incision: Intact, no swelling, erythema ] Assessment: [Stable post-op] Plan: [1. Discharge home today 2. Discharge instructions discussed] <Rochelle Ribera - Last Filed: 11/29/18 08:09> - Progress Note SOAP: Patient seen and examined this am. Agree with above. Tolerated procedure well yesterday. Preop Rt LE pain resolved. Ambulates, Tolerates PO well. Preop Rt LE numbness improved. Wants to go home. Motor 5/5 Marj Ambrocio MD <Pau Ambrocio - Last Filed: 11/29/18 19:28>
[2018-11-29] MEDS ORDERED: Pantoprazole TAB * 40 MG TAB PO SCH (09:00)
--- NOTE | 2018-11-29 15:11 | OP ---
OPERATIVE REPORT: DATE OF OPERATION: 11/28/18 DATE OF : 79 SURGEON: Pau Ambrocio MD SALES PROMOTION MANAGER: Rochelle Ribera, surgical PA The case was done with the assistance of surgical PA because of the complexity of the case. ANESTHESIA: General. PRE-OP DIAGNOSES: 1. Recurrent disk herniation. 2. Degenerative disk disease. POST-OP DIAGNOSES: 1. Recurrent disk herniation. 2. Degenerative disk disease. OPERATIVE PROCEDURE: The patient underwent right L4-5 reexploration and minimally invasive right L4-5 diskectomy with neurolysis. ESTIMATED BLOOD LOSS: 10 cc. COMPLICATIONS: None. SUMMARY: The patient is a very pleasant 43-year-old female with complaints of back pain radiating to the right lower extremity. The patient has a prolonged history of right lower extremity pain with right footdrop. The patient was treated initially conservatively as she was afraid to proceed with surgical intervention. She underwent right L4-5 diskectomy and after that patient had complete resolution of her symptoms, but unfortunately, after a few days patient started experiencing some mild complaints of the right lower extremity pain. Unfortunately, she had a fall on the ice and she started experiencing recurrence of her previous right lower extremity pain. After failing conservative treatment modalities, MRI of the lumbar spine revealed large recurrent disk herniation at L4-5. She was offered the option of surgical intervention after failing conservative treatment modalities. The patient understands the possible complications of the case with complications including , but not limited to bleeding, infection, risk of injury to adjacent structures , coma, paralysis, , need for additional procedures, anesthesia risks, stroke, blindness, cancer, instability, hardware failure, adjacent level disease , pseudoarthrosis. The patient understood that her condition may not improve and in fact may get worse after surgery and that she may need to have additional procedures in the future. She understood that operative plan may be modified according to intraoperative findings and conditions and that she may require additional procedures in the future. She also understood that the procedure may be aborted or done in more than 1 stages and that she may need prolonged ICU stay with the use of tracheostomy or gastrostomy. The same were discussed with patient's . DESCRIPTION OF PROCEDURE: The patient was brought to the operating room and was placed under general anesthesia by anesthesia team. She was carefully positioned prone on the Maxim frame on the Cullen table and all bony prominences were meticulously padded. Her skin was prepped and draped in the standard fashion and after appropriate surgical pause and patient identification , the previous incision from the previous laminectomy was identified on the skin and after confirming appropriate level with the spinal needle and intraoperative fluoroscopic imaging, the previous incision was infiltrated and was opened with a #10 surgical blade. Bovie was used to advance the incision. Over a series of dilators, the METRx tubular retractor was introduced into the field and it was docked over the right L4- 5 facet. Operative microscope was brought into the field and after exposing the remaining bony structures, the thecal sac was dissected free with a series of curettes. A significant amount of scar tissue was encountered as expected. High-speed drill was used to widen the facetectomy and laminectomy and Kerrison punches were used to extend the laminectomy. The lateral border of the thecal sac was then identified and was exposed cephalad to the level of normal dura. The plane between the dura and the scar tissue was then gently developed and significant amount of scar tissue was then removed with a series of Kerrison punches. Similarly, attention was brought to perform extended foraminotomy for the L5 level and after performing extensive neurolysis and release of the scar tissue, the thecal sac was gently retracted medially. A large herniated fragment of the disk, as expected from the previous MRI, was identified as well as other small fragments. These were removed very carefully and after removing the disk fragments, the dura and the nerve root was found to be clear of any pressure phenomenon. After copious irrigation and confirmation of meticulous hemostasis, the tubular retractor was gently removed and the wound was closed by layers. Then, attention was brought to gently remove the tubular retractor and after copious irrigation, meticulous hemostasis and confirmation of adequate decompression. The wound was closed by layers with 0 interrupted Vicryl sutures to approximate the fascia. The patient' s subcutaneous tissue was approximated with 2-0 inverted Vicryl sutures while the skin was covered with Dermabond. At the end of the procedure, all counts were reported to be correct. The patient remained hemodynamically stable throughout the case. She was then turned supine, was extubated and was transferred to Recovery in excellent condition, moving all extremities well. The case was done with the assistance of surgical PA because of the complexity of the case. [id number]/[facility] #: [id number] GUERO
--- NOTE | 2018-12-18 21:54 | DS ---
DISCHARGE SUMMARY: DATE OF ADMISSION: 11/28/18 DATE OF DISCHARGE: 11/29/18. DICTATED FOR: Pau Ambrocio MD* (dictated by BOBY Mei). ADMISSION DIAGNOSES: 1. Recurrent disk herniation. 2. Degenerative disk disease. DISCHARGE DIAGNOSES: 1. Recurrent disk herniation. 2. Degenerative disk disease. DISPOSITION: Home. CONDITION ON DISCHARGE: Good. HOSPITAL COURSE: This is a 43-year-old patient who is complaining of back pain radiating to her right lower extremity, has a history of right lower extremity pain with right footdrop. She underwent a diskectomy. After that, the patient had complete resolution of symptoms, but unfortunately after a few days she began to experience some mild complaints with right lower extremity pain. Unfortunately, she had a fall on ice that started exacerbating her symptoms and her right lower extremity pain. Initially, she tried conservative therapy with no success and was offered treatment modality which included a minimal invasive microdiskectomy at L4- L5. The patient did have an MRI, which demonstrated a disk herniation at L4-L5. The patient proceeded to have procedure on 11/28/18, tolerated the procedure well. On 11/29/18, the patient was stable, pain was well controlled with medication, she was tolerating oral fluids and food without any issues and was recommended for discharge. At the time of discharge , the patient was given discharge instructions and was recommended to follow up with primary care and follow up with neurosurgery clinic at the scheduled time. BOBY MEI [id number]/[facility] #: [id number] MTDD
--- NOTE | 2018-12-18 22:45 | DS ---
Amended report to enter cosigning physician. DISCHARGE SUMMARY: DATE OF ADMISSION: 11/28/18 DATE OF DISCHARGE: 11/29/18 DICTATED FOR: Pau Ambrocoi MD* (dictated by BOBY Mei). ADMISSION DIAGNOSES: 1. Recurrent disk herniation. 2. Degenerative disk disease. DISPOSITION: Home. CONDITION ON DISCHARGE: Good. HOSPITAL COURSE: This is a 43-year-old female with complaint of recurrent back pain, radiating down the right lower extremity, has history of right L4-L5 disk herniation which was documented through MRI. The patient had tried to do several conservative treatments without any success and was offered a surgical modality of a minimally invasive microdiskectomy at L4-L5 at the level of disk herniation. On 11/29/18, the patient underwent procedure successfully, was extubated and sent to short stay surgical unit. On 11/29/18, the patient's pain was improved with oral medications. She was tolerating oral liquids and foods without complication. She was able to ambulate with the assistance of PT/ OT and was stable at the time of discharge. Upon discharge, the patient was given discharge instructions and an appointment to follow with [facility]surgery [facility] and was advised to follow up with primary care within 1 week as well. BOBY MEI [id number]/[facility] #: [id number] MTDD
== END 2018-11-29 10:05 | disposition home or self-care (01) ==
LOC: OR 11:13 → SSU 19:14
PROVIDERS: ADMIT Neurological Surgery; ATTEND Neurological Surgery
DX: M51.26 Other intervertebral disc displacement, lumbar region (principal); M51.16 Intervertebral disc disorders with radiculopathy, lumbar region; Z48.89 Encounter for other specified surgical aftercare; M47.26 Other spondylosis with radiculopathy, lumbar region
CPT/HCPCS: 76000; 81025; 96372; 96374; 96375; 96376; A9270-GY; G0378; J0690; J1100; J1170; J2001; J2250; J2405; J3010

== ENCOUNTER 2020-03-23 05:42 | Inpatient (IN) ==
[2020-03-23] MEDS ORDERED: Lactated Ringers 1000 ml BAG 1,000 ML IV SCH (06:00)
[2020-03-23] MEDS ORDERED: Famotidine IV 10 MG/ML 2 ml VIAL (20 mg) IV ONE (06:00)
[2020-03-23] MEDS ORDERED: Dexamethasone IV 4 MG/ML VIAL 1 ml VIAL IV SLOW PU ONE (06:00)
[2020-03-23] MEDS ORDERED: Buffered Lidocaine 1% SYRIN 1 ml INTRADERM ONE (06:00)
[2020-03-23] MEDS ORDERED: Dexamethasone IV 4 MG/ML VIAL 1 ml VIAL ONE ×2 (06:09→07:53)
[2020-03-23] MEDS ORDERED: ceFAZolin 2 GM PREMIX 2 GM/50 ML BAG ONE ×2 (06:09→11:38)
[2020-03-23] MEDS ORDERED: Famotidine IV 10 MG/ML 2 ml VIAL (20 mg) ONE (06:09)
[2020-03-23] MEDS ORDERED: Bacitracin INJECTION 50,000 UNITS ONE (06:50)
[2020-03-23] MEDS ORDERED: Sevoflurane BOTTLE ONE (06:51)
[2020-03-23] MEDS ORDERED: Lidocaine 2% PF 5 ML VIAL ONE (06:51)
[2020-03-23] MEDS ORDERED: Propofol 10 MG/ML 20 ML BTL ONE (06:54)
[2020-03-23] MEDS ORDERED: Succinylcholine 200 mg VIAL 20 mg/ml 10 ml VIAL (200 mg) ONE ×2 (06:55→07:05)
[2020-03-23] MEDS ORDERED: Rocuronium 50 mg VIAL 10 mg/ml 5 ml VIAL (50 mg) ONE (06:56)
[2020-03-23] MEDS ORDERED: fentaNYL 250 mcg/5 ml 50 MCG/ML 5 ml VIAL (250 MCG) ONE (06:56)
[2020-03-23] MEDS ORDERED: Sterile Water for Inj 10 ML ONE ×2 (06:56→10:01)
[2020-03-23] MEDS ORDERED: EPHEDrine (Pressors) 50 MG/ML VIAL ONE ×2 (06:56→10:01)
[2020-03-23] MEDS ORDERED: Midazolam 2 mg/2 ml VIAL 1 mg/ml 2 ml VIAL (2 mg) ONE ×2 (06:58→07:59)
[2020-03-23] MEDS ORDERED: Remifentanil 2 MG VIAL ONE ×2 (07:10→10:40)
[2020-03-23] MEDS ORDERED: Propofol 10 mg/ml 100 ML BTL 200 ML ONE (08:42)
[2020-03-23] MEDS ORDERED: Phenylephrine 40 mcg/mL 10mL (400mcg) SYRINGE ONE ×2 (09:01→10:01)
[2020-03-23] MEDS ORDERED: Phenylephrine IV 10 MG/ML 1 ml VIAL ONE ×2 (09:21→10:08)
[2020-03-23] MEDS ORDERED: Glycopyrrolate IV 0.2 MG/ML 1 ML VIAL ONE (09:50)
[2020-03-23] MEDS ORDERED: HYDROmorphone 1 MG/1 ML SYRINGE ONE (11:28)
[2020-03-23] MEDS ORDERED: Ondansetron 4 mg VIAL 2 MG/ML 2 ml VIAL ONE ×3 (11:47→13:44)
[2020-03-23] MEDS ORDERED: oxyCODONE/Acetamin 5/325 mg TAB PO PRN (12:05)
[2020-03-23] MEDS ORDERED: DiMENhydriNATE IV 50 mg/ml 1 ml VIAL IV PUSH PRN (12:05)
[2020-03-23] MEDS ORDERED: Ondansetron 4 mg VIAL 2 MG/ML 2 ml VIAL IV PRN (12:05)
[2020-03-23] MEDS ORDERED: HYDROmorphone 1 MG/1 ML SYRINGE IV PRN (12:05)
[2020-03-23] MEDS ORDERED: Naloxone 0.4 mg VIAL 0.4 mg/ml 1 ml VIAL IV PRN (12:05)
[2020-03-23] MEDS ORDERED: oxyCODONE/Acetamin 5/325 mg TAB ONE (13:18)
[2020-03-23] MEDS ORDERED: fentaNYL 100 mcg/2 ml 50 MCG/ML VIAL ONE (13:18)
[2020-03-23] MEDS ORDERED: Meperidine 50 mg/ml SYRINGE 1 ml ONE (13:22)
[2020-03-23] MEDS ORDERED: Magnesium Hydroxide LIQ 30 ML UDC PO PRN ×2 (13:36→18:54)
[2020-03-23] MEDS: fentaNYL 100 mcg/2 ml 50 MCG/ML VIAL IV PRN ×2 (13:42→14:01)
[2020-03-23] MEDS ORDERED: Polyethylene Glycol 3350 17 GM PACKET PO PRN (18:54)
[2020-03-23] MEDS ORDERED: Senna TAB 8.6 mg TAB PO PRN (18:54)
[2020-03-23] MEDS: Ondansetron 4 mg VIAL 2 MG/ML 2 ml VIAL IV PRN (21:00)
[2020-03-24] MEDS: Ondansetron 4 mg VIAL 2 MG/ML 2 ml VIAL IV PRN ×2 (03:55→09:55)
[2020-03-24 07:51] VITALS: BP 116/67
[2020-03-26] MEDS ORDERED: Scopolamine PATCH Remove NOTE PATCH OFF ONE (12:07)
== END 2020-03-24 12:10 | disposition home or self-care (01) | DRG 460 ==
LOC: AA 05:42 → SSU 13:36
PROVIDERS: ADMIT Neurological Surgery; ATTEND Neurological Surgery